=== PATIENT | female | born 1950 | race American Indian/Alaskan Native ===

== ENCOUNTER 2016-06-01 09:08 | Observation (INO) | payer MEDICARE, OTHER ==
--- NOTE | 2016-06-01 09:21 | C.PDOC ---
History Of Present Illness 65yr old female brought in via BLS, presents to the ER with complaints of exacerbated abdominal pain since last night. Patient states similar to prior pain, "usually when I eat something bad". Patient states the pain started after eating a meatloaf last evening, reports of nausea and vomiting. 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 History is limited due to clinical condition. Denied diarrhea. LIMITED DUE TO CLIN COND CO EXAC ABD PAIN SINCE LAST NIGHT. PS SIM TO PRIOR "USUALLY WHEN I EAT SOMETHING BAD". ONSET AFTER EATING MEATLOAF LAST EVENING. +NV. SP PEPCID AND PRILOSEC HEMP FIBER TAKER OFF PS "IM SUPPOSED TO SEE SOMEONE NEXT MONTH ABOUT MY ANEURYSM", DOESNT KNOW IF NEEDS SURGERY OR NOT Patient s/p LHC and Aortogram 12/2015 Non Obstructive Coronaries Normal EF Aortogram reveals AAA 3.5 CM H/O CHRONIC RENAL INSUFF ADMITTED 01/2016 FOR SAME EXAM MOD DIST HEENT MMM; ANICTERIC ABD +EPIG TEND MOD SOFT NO R/G; NO PULSATILE MASS SKIN WARM DRY REMAINDER NEG Time Seen by Provider: 06/01/16 09:19 Chief Complaint (Nursing): Abdominal Pain History Per: Patient History/Exam Limitations: clinical condition Onset/Duration Of Symptoms: Sudden Onset (last night) Current Symptoms Are (Timing): Still Present Past Medical History Reviewed: Historical Data, Nursing Documentation, Vital Signs Vital Signs: Last Vital Signs Temp 98.2 F 06/01/16 09:16 Pulse 104 H 06/01/16 13:00 Resp 20 06/01/16 13:00 BP 205/101 H 06/01/16 13:00 Pulse Ox 100 06/01/16 13:00 - Medical History PMH: Anxiety, Asthma, Fractures (back), Gastritis, HTN, Hypercholesterolemia, Chronic Kidney Disease Surgical History: Cholecystectomy - [facility] Procedures MEASURE OF CARDIAC SAMPL & PRESSURE, L HEART, PERC APPROACH (01/06/16) PLAIN RADIOGRAPHY OF ABDOMINAL AORTA USING OTHER CONTRAST (01/06/16) PLAIN RADIOGRAPHY OF LEFT HEART USING OTHER CONTRAST (01/06/16) PLAIN RADIOGRAPHY OF MULT COR ART USING OTH CONTRAST (01/06/16) Family History: States: No Known Family Hx - Social History Hx Tobacco Use: Yes Hx Alcohol Use: No Hx Substance Use: Yes - Immunization History Hx Tetanus Toxoid Vaccination: Yes Hx Influenza Vaccination: Yes Hx Pneumococcal Vaccination: Yes Review Of Systems Except As Marked, All Systems Reviewed And Found Negative. Review Of Systems: ROS cannot be obtained secondary to pt's inabilty to answer questions. Gastrointestinal: Positive for: Nausea, Vomiting, Abdominal Pain. Negative for : Diarrhea Physical Exam - Physical Exam Appears: Non-toxic, In Acute Distress (Moderate) Skin: Warm, Dry, No Rash Head: Atraumatic, Normacephalic Eye(s): bilateral: Normal Inspection, PERRL, EOMI Ear(s): Bilateral: Normal Oral Mucosa: Moist Throat: Normal, No Erythema, No Exudate Neck: Normal, Normal ROM, Supple Chest: Symmetrical, No Tenderness Cardiovascular: Rhythm Regular, No Murmur Respiratory: Normal Breath Sounds, No Rales, No Wheezing Gastrointestinal/Abdominal: Soft (moderate), Tenderness (Epigastric ), No Guarding, No Rebound, Other (No pulsatile mass) Back: Normal Inspection, No CVA Tenderness Extremity: Normal ROM, No Swelling Neurological/Psych: Oriented x3, Normal Speech, Normal Motor ED Course And Treatment - Laboratory Results Result Diagrams: 06/01/16 09:50 06/01/16 09:50 ECG: Interpreted By Me ECG Rhythm: Sinus Rhythm ECG Interpretation: No Acute Changes Interpretation Of ECG: ST DEP [facility] FROM 03/2016 Rate From EC (BPM) - Other Rad CXR X-Ray: Viewed By Me, Read By Radiologist Interpretation: PROCEDURE: CHEST RADIOGRAPH, 1 VIEW. HISTORY: abd pain. COMPARISON: Comparison chest 04/10/2016. FINDINGS: LUNGS: Hyperinflation; rule out chronic changes of COPD. No acute consolidation. PLEURA: No pneumothorax or pleural fluid seen. CARDIOVASCULAR: Normal. OSSEOUS STRUCTURES: No significant abnormalities. VISUALIZED UPPER ABDOMEN: Normal. OTHER FINDINGS: None. IMPRESSION: Hyperinflation; rule out chronic changes of COPD. No acute consolidation. Progress - Re-Evaluation Re-evaluation Note: 06/01/16 10:19 SLEEPING, IMPROVED FROM PRIOR. VSS BUN/CREAT WNL, IMPROVED FROM PRIOR. WILL CTA A/P 06/01/16 13:46 PERSIST PAIN. REPEAT DILAUDID GIVEN. PT SLEEPS BUT AWAKES IN APPARENT DISCOMFORT WHEN STIMULATED BY PROVIDER 06/01/16 13:54 D/W PMD AWARE OF ER FINDINGS, WILL ADMIT - Data Reviewed Data Reviewed: Lab, Diagnostic imaging, EKG, Old records - Critical Care Citical Care: Excluding Proc Time Critical Care Time: 90 minutes Medical Decision Making Medical Decision Making: PLAN: * CT - Angio Abdomen & Pelvis * CXR * EKG * CBC * Troponin * Dilaudid IVP * Zofran IVP * Sodium Chloride IV Disposition Counseled Patient/Family Regarding: Diagnosis, Need For Followup - Disposition Disposition: HOSPITALIZED Disposition Time: 13:55 Condition: STABLE - POA Present On Arrival: None - Clinical Impression Clinical Impression: Abdominal pain - Scribe Statement The provider has reviewed the documentation as recorded by the Wilmeribakosua Hogan Provider Attestation: All medical record entries made by the Lachelle were at my direction and personally dictated by me. I have reviewed the chart and agree that the record accurately reflects my personal performance of the history, physical exam, medical decision making, and the department course for this patient. I have also personally directed, reviewed, and agree with the discharge instructions and disposition. Decision To Admit - Pt Status Changed To: Hospital Disposition Of: Observation - . Bed Request Type: Regular Admitting Physician: Kang Valdez Patient Diagnosis: Abdominal pain
[2016-06-01] MEDS ORDERED: HYDROmorphone 1 mg/ml ISec IVP STA (09:22)
[2016-06-01] MEDS ORDERED: Sodium Chloride 0.9% 1,000 ML IV ONE (09:22)
[2016-06-01] MEDS ORDERED: Sodium Chloride 0.9% 1,000 ML ONE (09:50)
[2016-06-01] MEDS ORDERED: HYDROmorphone 1 mg/ml ISec ONE (09:51)
[2016-06-01 09:59] LABS: BASO % 0.5 % (0.0-2.0); HEMATOCRIT 41.9 % (34.0-47.0); LYMPH # 0.8 K/uL (1.0-4.3); LYMPH % 8.8 % (20.0-40.0); MEAN CELL VOLUME 88.2 fL (81.0-99.0); MEAN CORPUSCULAR HEMOGLOBIN 29.2 pg (27.0-31.0); MEAN CORPUSCULAR HGB CONC 33.1 g/dL (33.0-37.0); MONO # 0.2 K/uL (0.0-0.8); MONO % 2.2 % (0.0-10.0); NRBC % 0.1 % (0.0-2.0); PLATELET COUNT 286 K/uL (130-400)
[2016-06-01 10:02] LABS: CHLORIDE 98 mmol/L (98-107); SODIUM 144 mmol/L (132-148)
[2016-06-01 10:03] LABS: POTASSIUM 3.6 mmol/L (3.6-5.2)
[2016-06-01 10:04] LABS: WHITE BLOOD COUNT 9.4 K/uL (4.8-10.8)
[2016-06-01 10:05] LABS: ALB/GLOB RATIO 1.3 (1.0-2.1); ALKALINE PHOSPHATASE 106 U/L (38-126); ALT/SGPT 22 U/L (9-52); AST/SGOT 23 U/L (14-36); BILIRUBIN,TOTAL 0.7 mg/dL (0.2-1.3); BLOOD UREA NITROGEN 14 mg/dL (7-17); CARBON DIOXIDE 27 mmol/L (22-30); GFR AFRICAN-AMERICAN > 60; GLUCOSE,RANDOM 154 mg/dL (65-105); TOTAL PROTEIN 8.8 g/dL (6.3-8.3)
[2016-06-01 10:06] LABS: CALCIUM 10.2 mg/dl (8.6-10.4)
[2016-06-01 10:21] LABS: NEUTROPHIL 88 % (50-75); TOTAL CELLS COUNTED 100
--- NOTE | 2016-06-01 11:10 | RAD ---
PROCEDURE: CHEST RADIOGRAPH, 1 VIEW HISTORY: abd pain COMPARISON: Comparison chest 04/10/2016 FINDINGS: LUNGS: Hyperinflation; rule out chronic changes of COPD. No acute consolidation. PLEURA: No pneumothorax or pleural fluid seen. CARDIOVASCULAR: Normal. OSSEOUS STRUCTURES: No significant abnormalities. VISUALIZED UPPER ABDOMEN: Normal. OTHER FINDINGS: None. IMPRESSION: Hyperinflation; rule out chronic changes of COPD. No acute consolidation.
[2016-06-01] MEDS ORDERED: Iodixanol 320 MG/ML 100 ML BOTTLE IV ONE (12:17)
[2016-06-01] MEDS ORDERED: HYDROmorphone 0.5 mg/0.5 ml ISec IVP STA (13:15)
--- NOTE | 2016-06-01 13:36 | CT ---
PROCEDURE: CT Angiography Chest, Abdomen and Pelvis with and without intravenous contrast HISTORY: HTN, ABD PAIN HO AAA RO RUPTURE/DISSECTION COMPARISON: None. TECHNIQUE: Contiguous axial images of the chest, abdomen and pelvis were obtained with and without IV contrast. Coronal and sagittal reformats were generated. IV dose administered: 150 milliliters Visipaque 320 Radiation dose: Total exam DLP = 408.05 MGy-cm. FINDINGS: CT ANGIOGRAPHY OF THE CHEST WITH & WITHOUT CONTRAST: AORTA (CHEST AND ABDOMEN): There is no evidence of dissection. Proximal descending thoracic aorta measures 3.5 centimeters. The distal descending thoracic aorta suprarenal aorta is unremarkable. There is a infrarenal aortic aneurysm measuring 3.7 centimeters aneurysm begins approximately 1 centimeter from the origin of the left renal artery and continues to 1 centimeter before the bifurcation. . Right and left common iliac artery is heavily calcified but patent. No aneurysm is present. The visualized portion of the hypogastric artery and external iliac artery likewise normal. PULMONARY ARTERY: Pulmonary artery is unremarkable without evidence of pulmonary embolism. LUNGS: Clear. No nodule, mass or consolidation. MEDIASTINUM: Unremarkable. Normal caliber aorta and pulmonary arterial trunk. No aortic dissection. Normal size heart. LYMPH NODES: Unremarkable. PLEURA: Unremarkable. No pneumothorax. No pleural fluid. BONES: Unremarkable. OTHER FINDINGS: None. CT ANGIOGRAPHY OF THE ABDOMEN AND PELVIS WITH CONTRAST: LIVER: Unremarkable. No gross lesion or ductal dilatation. GALLBLADDER AND BILE DUCTS: Cholecystectomy PANCREAS: Unremarkable. No gross lesion or ductal dilatation. SPLEEN: Unremarkable. ADRENALS: Unremarkable. No mass. KIDNEYS AND URETERS: Hyperdense lesions within the left kidney on noncontrast study. These are complex renal cysts. VASCULATURE: STOMACH AND BOWEL: Very limited evaluation without PO contrast. No obvious mass. APPENDIX: Normal appendix. PERITONEUM: Unremarkable. No free fluid. No free air. LYMPH NODES: Unremarkable. No enlarged lymph nodes. BLADDER: Unremarkable. REPRODUCTIVE: Unremarkable. BONES: No acute fracture. OTHER FINDINGS: None. IMPRESSION: 1. Infrarenal aortic aneurysm measuring 3.7 centimeter. There is no evidence of dissection. 2. Pulmonary artery is unremarkable without evidence of pulmonary embolism. 3. Multiple hypodense lesions present within the left kidney in a noncontrast study. Duplex ultrasound recommend as a follow-up.
[2016-06-01] MEDS ORDERED: Dextrose 5%/0.45% NS 1,000 ML IV SCH (16:45)
[2016-06-01] MEDS ORDERED: HYDROmorphone 0.5 mg/0.5 ml ISec IVP PRN (17:06)
[2016-06-01 18:05] LABS: RBC URINE 4 /hpf (0-3); URINE BILIRUBIN NEGATIVE (NEGATIVE); URINE BLOOD 1+ (NEGATIVE); URINE COLOR Straw (YELLOW); URINE GLUCOSE (UA) 1+ mg/dL (Normal); URINE KETONE NEGATIVE (NEGATIVE); URINE LEUKOCYTE ESTERASE NEG Leu/uL (Negative); URINE PROTEIN 2+ mg/dL (NEGATIVE); URINE UROBILINOGEN NORMAL mg/dL (0.2-1.0); WBC URINE 1 /hpf (0-5)
[2016-06-01 22:10] VITALS: RESP 20
[2016-06-02 00:28] VITALS: PULSE 66; TEMP 97.6; O2SAT 100
[2016-06-02] MEDS: Albuterol-Ipratrop 20 mcg/actuation (4 g) INH SCH ×3 (06:12→13:12)
[2016-06-02 07:17] LABS: BASO % 0.7 % (0.0-2.0); EOS % 0.4 % (0.0-4.0); LYMPH # 3.2 K/uL (1.0-4.3); LYMPH % 46.2 % (20.0-40.0); MEAN CELL VOLUME 89.7 fL (81.0-99.0); MEAN CORPUSCULAR HEMOGLOBIN 29.1 pg (27.0-31.0); MEAN CORPUSCULAR HGB CONC 32.4 g/dL (33.0-37.0); MEAN PLATELET VOLUME 6.8 fL (7.2-11.7); MONO # 0.7 K/uL (0.0-0.8); MONO % 9.6 % (0.0-10.0); RED CELL DISTRIBUTION WIDTH 14.7 % (11.5-14.5); WHITE BLOOD COUNT 6.9 K/uL (4.8-10.8)
[2016-06-02 07:25] LABS: POTASSIUM 3.9 mmol/L (3.6-5.2)
[2016-06-02 07:29] LABS: CALCIUM 9.2 mg/dl (8.6-10.4)
--- NOTE | 2016-06-02 09:31 | CP.PCM.HP ---
History of Present Illness - History of Present Illness History of Present Illness: Cheif complain: nausea/ vomitting x 2 hrs HPI: 65yr old female PMH abdominal aortic aneurym, HTn, Hyperlipidemia, chronic smoker brought in via BLS, presents to the ER with complaints of exacerbated abdominal pain since last night after eating large portion of meat loaf and pasta. Patient states similar to prior pain, "usually when I eat something bad". Patient states the pain started after eating a meatloaf last evening, reports of nausea and vomiting. 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 Denied diarrhea. Review of Systems - Review of Systems Systems not reviewed;Unavailable: Acuity of Condition - Constitutional Constitutional: Chills, Fatigue, Fever, Lethargy, Malaise, Weakness - EENT Eyes: absent: As Per HPI, Blind Spots, Blurred Vision, Change in Vision, Decreased Night Vision, Diplopia, Discharge, Dry Eye, Exophthalmos, Floaters, Irritation, Itchy Eyes, Loss of Peripheral Vision, Pain, Photophobia, Requires Corrective Lenses, Sees Flashes, Spots in Vision, Tunnel Vision, Other Visual Disturbances, Loss of Vision, Other Nose/Mouth/Throat: absent: As Per HPI, Epistaxis, Nasal Congestion, Nasal Discharge, Nasal Obstruction, Nasal Trauma, Nose Pain, Post Nasal Drip, Sinus Pain, Sinus Pressure, Bleeding Gums, Change in Voice, Dental Pain, Dry Mouth, Dysphagia, Halitosis, Hoarsness, Lip Swelling, Mouth Lesions, Mouth Pain, Odynophagia, Sore Throat, Throat Swelling, Tongue Swelling, Facial Pain, Neck Pain, Neck Mass, Other - Breasts Breasts: absent: As Per HPI, Change in Shape, Mass, Pain, Nipple Discharge, Nipple Inversion, Skin Changes, Swelling, Other - Respiratory Respiratory: absent: As Per HPI, Cough, Dyspnea, Hemoptysis, Dyspnea on Exertion , Wheezing, Snoring, Stridor, Pain on Inspiration, Chest Congestion, Excessive Mucous Production, Change in Mucous Color, Pain with Coughing, Other - Gastrointestinal Gastrointestinal: Abdominal Pain, Nausea, Vomiting Past Patient History - Infectious Disease Hx of Infectious Diseases: None - Past Medical History & Family History Past Medical History?: Yes - Past Social History Smoking Status: 2 STICK/DA - CARDIAC Hx Hypercholesterolemia: Yes Hx Hypertension: Yes - PULMONARY Hx Asthma: Yes - NEUROLOGICAL Hx Neurological Disorder: No - HEENT Hx HEENT Problems: No - RENAL Hx Chronic Kidney Disease: Yes - ENDOCRINE/METABOLIC Hx Endocrine Disorders: No - HEMATOLOGICAL/ONCOLOGICAL Hx Blood Disorders: No Hx Blood Transfusions: No - INTEGUMENTARY Hx Dermatological Problems: No - MUSCULOSKELETAL/RHEUMATOLOGICAL Hx Falls: Yes Hx Fractures: Yes Hx Spinal Stenosis: Yes - GASTROINTESTINAL Hx Gastrointestinal Disorders: Yes Hx Gastritis: Yes - GENITOURINARY/GYNECOLOGICAL Hx Genitourinary Disorders: No - PSYCHIATRIC Hx Anxiety: Yes Hx Substance Use: No - SURGICAL HISTORY Hx Cholecystectomy: Yes - ANESTHESIA Hx Anesthesia: Yes Hx Anesthesia Reactions: No Hx Malignant Hyperthermia: No Meds Allergies/Adverse Reactions: Allergies Allergy/AdvReac Type Severity Reaction Status Date / Time chocolate flavor Allergy Intermediate WHEEZING Verified 04/10/16 07:58 peanut Allergy Intermediate WHEEZING Verified 04/10/16 07:58 spices Allergy Severe WHEEZING Uncoded 04/10/16 07:58 Physical Exam - Constitutional Appears: No Acute Distress - Head Exam Head Exam: ATRAUMATIC, NORMAL INSPECTION, NORMOCEPHALIC - Eye Exam Eye Exam: EOMI, Normal appearance, PERRL Pupil Exam: NORMAL ACCOMODATION, PERRL - Respiratory Exam Respiratory Exam: Clear to Auscultation Bilateral, NORMAL BREATHING PATTERN - Cardiovascular Exam Cardiovascular Exam: REGULAR RHYTHM, Systolic Murmur - GI/Abdominal Exam GI & Abdominal Exam: Normal Bowel Sounds, Soft. absent: Tenderness - Rectal Exam Rectal Exam: Deferred - Neurological Exam Neurological exam: Alert, CN II-XII Intact, Normal Gait, Oriented x3, Reflexes Normal - Psychiatric Exam Psychiatric exam: Agitated, Anxious - Skin Additional comments: senile turgor, no bruises, no purpura Results - Vital Signs Recent Vital Signs: Last Vital Signs Temp 97.6 F 06/02/16 00:24 Pulse 66 06/02/16 00:24 Resp 20 06/02/16 00:24 BP 114/73 06/02/16 00:24 Pulse Ox 100 06/02/16 00:24 - Labs Result Diagrams: 06/02/16 07:04 06/02/16 07:04 Labs: Laboratory Results - last 24 hr 06/01/16 06/02/16 17:56 07:04 WBC 6.9 RBC 4.57 Hgb 13.3 Hct 41.0 MCV 89.7 MCH 29.1 MCHC 32.4 L RDW 14.7 H Plt Count 238 MPV 6.8 L Neut % (Auto) 43.1 L Lymph % (Auto) 46.2 H Nash % (Auto) 9.6 Eos % (Auto) 0.4 Baso % (Auto) 0.7 Neut # 3.0 Lymph # 3.2 Nash # 0.7 Eos # 0.0 Baso # 0.0 Sodium 136 Potassium 3.9 Chloride 93 L Carbon Dioxide 27 Anion Gap 20 BUN 21 H Creatinine 1.4 H Est GFR ( Amer) 46 Est GFR (Non-Af Amer) 38 Random Glucose 103 Calcium 9.2 Urine Color Straw Urine Clarity Clear Urine pH 6.0 Ur Specific [place] 1.024 Urine Protein 2+ H Urine Glucose (UA) 1+ Urine Ketones Negative Urine Blood 1+ H Urine Nitrate Negative Urine Bilirubin Negative Urine Urobilinogen Normal Ur Leukocyte Esterase Neg Urine WBC (Auto) 1 Urine RBC (Auto) 4 H Ur Squamous Epith Cells 2 Assessment & Plan (1) Dehydration Status: Acute (2) Nausea & vomiting Status: Acute (3) Gastroenteritis Assessment and Plan: could be gastritis, unlikely to be PUD Status: Acute (4) Abdominal aortic aneurysm (AAA) Status: Acute
[2016-06-02] MEDS ORDERED: Enoxaparin 40 mg Syringe SC SCH (10:00)
--- NOTE | 2016-06-02 13:03 | CP.PCM.PN ---
Subjective - Date & Time of Evaluation Date of Evaluation: 06/02/16 Time of Evaluation: 11:00 - Subjective Subjective: Pt seen an d examined today states feels better, abdominal pain improved , denies any sob, N/V/D , c/o sore throat , and gland swollen , tolerating liquid diet Objective - Vital Signs/Intake and Output Vital Signs (last 24 hours): Temp Pulse Resp BP Pulse Ox 97.6 F 66 20 114/73 100 06/02/16 00:24 06/02/16 00:24 06/02/16 00:24 06/02/16 00:24 06/02/16 00:24 Intake and Output: 06/02/16 06/02/16 06:59 18:59 Intake Total 500 Balance 500 - Medications Medications: Current Medications Albuterol/Ipratropium (Combivent Respimat) 2 puff INH RQ6 [facility] Last Admin: 06/02/16 08:21 Dose: 2 puff Alprazolam (Xanax) 1 mg PO BID PRN PRN Reason: Anxiety Last Admin: 06/01/16 17:23 Dose: 1 mg Amlodipine Besylate (Norvasc) 10 mg PO DAILY [facility] Last Admin: 06/02/16 09:46 Dose: 10 mg Aspirin (Ecotrin) 81 mg PO DAILY [facility] Last Admin: 06/02/16 09:46 Dose: 81 mg Citalopram Hydrobromide (Celexa) 10 mg PO HS [facility] Last Admin: 06/01/16 21:37 Dose: 10 mg Clonidine HCl (Catapres) 0.1 mg PO BID [facility] Last Admin: 06/02/16 09:54 Dose: 0.1 mg Duloxetine HCl (Cymbalta) 30 mg PO HS [facility] Last Admin: 06/01/16 21:36 Dose: 30 mg Enoxaparin Sodium (Lovenox) 40 mg SC DAILY [facility] Last Admin: 06/02/16 09:46 Dose: 40 mg Dextrose/Sodium Chloride (Dextrose 5%/0.45% Ns 1000 Ml) 1,000 mls @ 80 mls/hr IV .[id number] [facility] Last Admin: 06/01/16 17:29 Dose: 80 mls/hr Morphine Sulfate (Morphine) 2 mg IVP Q4 PRN PRN Reason: Pain, severe (8-10) Ondansetron HCl (Zofran Inj) 4 mg IVP Q4 PRN PRN Reason: Nausea/Vomiting Last Admin: 06/01/16 15:15 Dose: 4 mg Pantoprazole Sodium (Protonix Inj) 40 mg IVP DAILY [facility] Last Admin: 06/02/16 09:45 Dose: 40 mg - Labs Labs: 06/02/16 07:04 06/02/16 07:04 Assessment and Plan - Assessment and Plan (Free Text) Assessment: I A/P 65 yr old female admitted for abdominal pain vss- stable CT - dissection - infrarenal aortic aneurysm measuring 3.7 centimeter. There is no evidence of dissection.Pulmonary artery is unremarkable without evidence of pulmonary embolism .Multiple hypodense lesions present within the left kidney in a noncontrast study. seen by Dr. Valdez today, cleared for discharge home today and f/u with Dr. Valdez office on Wednesday Pt with acute abdominal pain and sore throat , pain controlled with morphine , will discharge patient with percocet for 5 days for acute pain and pt will follow up with Dr. Valdez office in 1 week All RX e prescribed to Patients pharmacy
[2016-06-02 13:54] VITALS: BP 133/83
--- NOTE | 2016-06-02 20:12 | CARD ---
APPROVED REPORT EKG Measurement Heart [id number] <Conclusion> Normal sinus rhythm Possible left atrial enlargement Nonspecific ST abnormality Abnormal ECG
--- NOTE | 2016-06-03 00:43 | CP.PCM.DIS ---
Provider - Provider Date of Admission: 06/01/16 13:57 Attending physician: Kang Valdez MD Diagnosis - Discharge Diagnosis (1) Dehydration Status: Acute (2) Nausea & vomiting Status: Acute (3) Gastroenteritis Status: Acute (4) Abdominal aortic aneurysm (AAA) Status: Acute Hospital Course - Lab Results Lab Results: Most Recent Lab Values WBC 6.9 K/uL (4.8-10.8) 06/02/16 07:04 RBC 4.57 Mil/uL (3.80-5.20) 06/02/16 07:04 Hgb 13.3 g/dL (11.0-16.0) 06/02/16 07:04 Hct 41.0 % (34.0-47.0) 06/02/16 07:04 MCV 89.7 fL (81.0-99.0) 06/02/16 07:04 MCH 29.1 pg (27.0-31.0) 06/02/16 07:04 MCHC 32.4 g/dL (33.0-37.0) L 06/02/16 07:04 RDW 14.7 % (11.5-14.5) H 06/02/16 07:04 Plt Count 238 K/uL (130-400) 06/02/16 07:04 MPV 6.8 fL (7.2-11.7) L 06/02/16 07:04 Neut % (Auto) 43.1 % (50.0-75.0) L 06/02/16 07:04 Lymph % (Auto) 46.2 % (20.0-40.0) H 06/02/16 07:04 [place] % (Auto) 9.6 % (0.0-10.0) 06/02/16 07:04 Eos % (Auto) 0.4 % (0.0-4.0) 06/02/16 07:04 Baso % (Auto) 0.7 % (0.0-2.0) 06/02/16 07:04 Neut # 3.0 K/uL (1.8-7.0) 06/02/16 07:04 Lymph # 3.2 K/uL (1.0-4.3) 06/02/16 07:04 [place] # 0.7 K/uL (0.0-0.8) 06/02/16 07:04 Eos # 0.0 K/uL (0.0-0.7) 06/02/16 07:04 Baso # 0.0 K/uL (0.0-0.2) 06/02/16 07:04 Neutrophils % (Manual) 88 % (50-75) H 06/01/16 09:50 Lymphocytes % (Manual) 9 % (20-40) L 06/01/16 09:50 Monocytes % (Manual) 3 % (0-10) 06/01/16 09:50 Platelet Estimate Normal (NORMAL) 06/01/16 09:50 Target Cells Slight 06/01/16 09:50 Sodium 136 mmol/L (132-148) 06/02/16 07:04 Potassium 3.9 mmol/L (3.6-5.2) 06/02/16 07:04 Chloride 93 mmol/L (98-107) L 06/02/16 07:04 Carbon Dioxide 27 mmol/L (22-30) 06/02/16 07:04 Anion Gap 20 (10-20) 06/02/16 07:04 BUN 21 mg/dL (7-17) H 06/02/16 07:04 Creatinine 1.4 MG/DL (0.7-1.2) H 06/02/16 07:04 Est GFR ( Amer) 46 06/02/16 07:04 Est GFR (Non-Af Amer) 38 06/02/16 07:04 Random Glucose 103 mg/dL (65-105) 06/02/16 07:04 Calcium 9.2 mg/dl (8.6-10.4) 06/02/16 07:04 Total Bilirubin 0.7 mg/dL (0.2-1.3) 06/01/16 09:50 AST 23 U/L (14-36) 06/01/16 09:50 ALT 22 U/L (9-52) 06/01/16 09:50 Alkaline Phosphatase 106 U/L (38-126) 06/01/16 09:50 Troponin I < 0.0120 ng/mL (0.00-0.120) 06/01/16 09:50 Total Protein 8.8 g/dL (6.3-8.3) H 06/01/16 09:50 Albumin 5.0 g/dL (3.5-5.0) 06/01/16 09:50 Globulin 3.9 gm/dL (2.2-3.9) 06/01/16 09:50 Albumin/Globulin Ratio 1.3 (1.0-2.1) 06/01/16 09:50 Lipase 76 U/L (23-300) 06/01/16 09:50 Urine Color Straw (YELLOW) 06/01/16 17:56 Urine Clarity Clear (Clear) 06/01/16 17:56 Urine pH 6.0 (5.0-8.0) 06/01/16 17:56 Ur Specific [place] 1.024 (1.003-1.030) 06/01/16 17:56 Urine Protein 2+ mg/dL (NEGATIVE) H 06/01/16 17:56 Urine Glucose (UA) 1+ mg/dL (Normal) 06/01/16 17:56 Urine Ketones Negative mg/dL (NEGATIVE) 06/01/16 17:56 Urine Blood 1+ (NEGATIVE) H 06/01/16 17:56 Urine Nitrate Negative (NEGATIVE) 06/01/16 17:56 Urine Bilirubin Negative (NEGATIVE) 06/01/16 17:56 Urine Urobilinogen Normal mg/dL (0.2-1.0) 06/01/16 17:56 Ur Leukocyte Esterase Neg [place]/uL (Negative) 06/01/16 17:56 Urine WBC (Auto) 1 /hpf (0-5) 06/01/16 17:56 Urine RBC (Auto) 4 /hpf (0-3) H 06/01/16 17:56 Ur Squamous Epith Cells 2 /hpf (0-5) 06/01/16 17:56 - Hospital Course Hospital Course: Pt seen an d examined today states feels better, abdominal pain improved , denies any sob, N/V/D , c/o sore throat , and gland swollen , tolerating liquid diet , pt is for discharge to home, she was advised for eating healthy foods avoiding heavy graesy foods and canned foods also counselled for smoking cessation Discharge Exam - Head Exam Head Exam: ATRAUMATIC, NORMAL INSPECTION, NORMOCEPHALIC - Eye Exam Eye Exam: EOMI, Normal appearance - ENT Exam ENT Exam: Mucous Membranes Moist - Respiratory Exam Respiratory Exam: Clear to PA & Lateral, NORMAL BREATHING PATTERN - Cardiovascular Exam Cardiovascular Exam: REGULAR RHYTHM, +S1, +S2 - GI/Abdominal Exam GI & Abdominal Exam: Normal Bowel Sounds Discharge Plan - Discharge Medications Prescriptions: Combivent Respimat 2 puff PO Q6 #1 Amoxicillin [Amoxil 500 mg Cap] 500 mg PO Q12 #14 cap cloNIDine [Catapres] 0.1 mg PO Q8 #90 tab Valsartan [Diovan] 160 mg PO DAILY #30 tab oxyCODONE/Acetaminophen [Percocet 5/325 mg Tab] 1 ea PO Q6 PRN #20 tab PRN Reason: Pain, Moderate (4-7) Ergocalciferol (Vitamin D2) [Vitamin D2] 50,000 unit PO QWK #30 capsule ALPRAZolam [Xanax] 1 mg PO DAILY PRN #10 tab PRN Reason: Anxiety - Follow Up Plan Condition: STABLE Disposition: HOME/ ROUTINE Instructions: Clonidine (By mouth), Oxycodone/Acetaminophen (By mouth), Alprazolam (By mouth), Amoxicillin/Clavulanate Potassium (By mouth), Ergocalciferol (By mouth), Valsartan (By mouth), Ipratropium/Albuterol (By breathing), Abdominal Aortic Aneurysm (DC), Gastroenteritis (DC), Acute Abdominal Pain (DC) Additional Instructions: f/u with Dr. Valdez office on wednesday Continue medication as per Med. Rec. continue amoxicillin for 7 days Referrals: Kang Valdez MD [Staff Provider] -
== END 2016-06-02 17:09 | disposition home or self-care (01) ==
LOC: C.ER 09:08 → C.9E 13:57 → C.3T 14:39
PROVIDERS: ADMIT Internal Medicine; ATTEND Internal Medicine
DX: K52.9 Noninfective gastroenteritis and colitis, unspecified (principal); E86.0 Dehydration; E78.5 Hyperlipidemia, unspecified; I71.4 Abdominal aortic aneurysm, without rupture; J45.909 Unspecified asthma, uncomplicated; Z87.891 Personal history of nicotine dependence; Z68.20 Body mass index [BMI] 20.0-20.9, adult
CPT/HCPCS: 36415; 71010; 71275; 74175; 80048; 80053; 81001; 83690; 84484; 85025; 87086; 93005; 94640; 96374; 97162; 99285; C9113; G0378; G8978; G8979; J1170; J1650; J2405; J7040; J7042; Q9967

== ENCOUNTER 2016-09-11 12:33 | Emergency (ER) | payer MEDICARE ==
[2016-09-11 12:43] VITALS: RESP 18; TEMP 98
[2016-09-11] MEDS ORDERED: Sodium Chloride 0.9% 500 ML IV ONE ×2 (13:44→14:19)
[2016-09-11 13:45] LABS: BASO # 0.1 K/uL (0.0-0.2); EOS % 0.4 % (0.0-4.0); HEMATOCRIT 44.7 % (34.0-47.0); LYMPH % 37.8 % (20.0-40.0); MEAN CELL VOLUME 88.6 fL (81.0-99.0); MEAN CORPUSCULAR HEMOGLOBIN 29.1 pg (27.0-31.0); MEAN CORPUSCULAR HGB CONC 32.9 g/dL (33.0-37.0); MONO # 0.9 K/uL (0.0-0.8); NRBC % 0.1 % (0.0-2.0); WHITE BLOOD COUNT 7.8 K/uL (4.8-10.8)
[2016-09-11 13:48] LABS: CHLORIDE 90 mmol/L (98-107)
[2016-09-11 13:49] LABS: POTASSIUM 3.5 mmol/L (3.6-5.2); SODIUM 133 mmol/L (132-148)
[2016-09-11 13:51] LABS: AST/SGOT 22 U/L (14-36); BILIRUBIN,TOTAL 0.7 mg/dL (0.2-1.3); BLOOD UREA NITROGEN 50 mg/dL (7-17); CARBON DIOXIDE 28 mmol/L (22-30); GFR AFRICAN-AMERICAN 32; TOTAL PROTEIN 8.7 g/dL (6.3-8.3)
[2016-09-11 13:52] LABS: ALKALINE PHOSPHATASE 110 U/L (38-126); ALT/SGPT 21 U/L (9-52); CALCIUM 10.1 mg/dl (8.6-10.4); GLUCOSE,RANDOM 110 mg/dL (65-105)
--- NOTE | 2016-09-11 13:58 | C.PDOC ---
History Of Present Illness 65 y/o female presents to ED with c/o epigastric abdominal pain, nausea, and occasional chest pain with palpitations over the last week. Patient also c/o bilateral hip pain. She denies SOB, vomiting, diarrhea, cough, fever, recent falls/injuries. Time Seen by Provider: 09/11/16 13:03 Chief Complaint (Nursing): Abdominal Pain History Per: Patient History/Exam Limitations: no limitations Onset/Duration Of Symptoms: Days Current Symptoms Are (Timing): Still Present Severity: Mild Location Of Pain/Discomfort: Epigastric Radiation Of Pain To:: None Quality Of Discomfort: "Pain" Associated Symptoms: Nausea. denies: Vomiting, Diarrhea, Constipation Past Medical History Reviewed: Historical Data, Nursing Documentation, Vital Signs Vital Signs: Last Vital Signs Temp 98.0 F 09/11/16 12:42 Pulse 72 09/11/16 14:45 Resp 18 09/11/16 14:45 BP 120/70 09/11/16 14:45 Pulse Ox 99 09/11/16 15:24 - Medical History PMH: Anxiety, Arthritis (LBP), Asthma, Fractures, Gastritis, HTN, Hypercholesterolemia, Chronic Kidney Disease Surgical History: Cholecystectomy - [facility] Procedures MEASURE OF CARDIAC SAMPL & PRESSURE, L HEART, PERC APPROACH (01/06/16) PLAIN RADIOGRAPHY OF ABDOMINAL AORTA USING OTHER CONTRAST (01/06/16) PLAIN RADIOGRAPHY OF LEFT HEART USING OTHER CONTRAST (01/06/16) PLAIN RADIOGRAPHY OF MULT COR ART USING OTH CONTRAST (01/06/16) Family History: States: No Known Family Hx - Social History Hx Tobacco Use: Yes Hx Alcohol Use: No Hx Substance Use: No - Immunization History Hx Tetanus Toxoid Vaccination: Yes Hx Influenza Vaccination: Yes Hx Pneumococcal Vaccination: Yes Review Of Systems Except As Marked, All Systems Reviewed And Found Negative. Constitutional: Negative for: Fever, Chills Cardiovascular: Positive for: Palpitations (occasional). Negative for: Chest Pain, Orthopnea Respiratory: Negative for: Cough, Shortness of Breath Gastrointestinal: Positive for: Nausea, Abdominal Pain. Negative for: Vomiting , Diarrhea Musculoskeletal: Positive for: Other (Hip pain, bilateral) Skin: Negative for: Rash Physical Exam - Physical Exam Appears: Non-toxic, No Acute Distress, Other (appears anxious) Skin: Normal Color, Warm, Dry Head: Normacephalic Oral Mucosa: Moist Cardiovascular: Rhythm Regular Respiratory: Normal Breath Sounds, No Rales, No Rhonchi, No Wheezing Gastrointestinal/Abdominal: Normal Exam, Bowel Sounds, Soft, No Tenderness Back: Normal Inspection Extremity: Normal ROM, No Calf Tenderness, No Deformity Neurological/Psych: Oriented x3 ED Course And Treatment - Laboratory Results Result Diagrams: 09/11/16 13:37 09/11/16 13:37 ECG: Interpreted By Me, Viewed By Me (NSR 85 bpm, normal axis, no acute ST/T wave changes) ECG Rhythm: Sinus Rhythm ECG Interpretation: Normal Rate From EC (bpm) O2 Sat by Pulse Oximetry: 99 (RA) Pulse Ox Interpretation: Normal - Radiology CXR: Read By Radiologist CXR Interpretation: Yes: Other (Hyperinflation suggestive for COPD and or emphysematous changes. Biapical pleural thickening. Bibasilar breast and nipple shadows. No focal infiltrate or effusion.) Progress Note: Blood work, EKG, CXR ordered and reviewed. Patient given IV morphine for pain. PO tums given at patient's request (epigastric burning/gas). Reevaluation Time: 15:30 Reassessment Condition: Improved (Patient reassessed, currently resting comfortably, states she is feeling much better and would like to be discharged home. Patient made aware of blood test results and given copies. She was instructed to drink plenty of fluids, use her pain medication as home as needed , and to follow up with Dr. valdez in 1-2 days. Patient understands she should return to ED if symptoms worsen.) Disposition Counseled Patient/Family Regarding: Studies Performed, Diagnosis, Need For Followup - Disposition Referrals: Kang Valdez MD [Staff Provider] - Disposition: HOME/ ROUTINE Disposition Time: 15:30 Condition: STABLE Additional Instructions: FOLLOW UP WITH YOUR DOCTOR IN 1-2 DAYS DRINK PLENTY OF FLUIDS RETURN TO ER IF SYMPTOMS WORSEN Instructions: Epigastric Pain (ED) Print Language: JAPANESE - POA Present On Arrival: None - Clinical Impression Clinical Impression: Epigastric abdominal pain - Scribe Statement The provider has reviewed the documentation as recorded by the Lachelle Cavanaugh Provider Attestation: All medical record entries made by the Lachelle were at my direction and personally dictated by me. I have reviewed the chart and agree that the record accurately reflects my personal performance of the history, physical exam, medical decision making, and the department course for this patient. I have also personally directed, reviewed, and agree with the discharge instructions and disposition.
--- NOTE | 2016-09-11 14:10 | RAD ---
PROCEDURE: CHEST RADIOGRAPH, 1 VIEW HISTORY: Chest pain COMPARISON: 06/01/2016 FINDINGS: LUNGS: Hyperinflation suggestive for COPD and or emphysematous changes. Biapical pleural thickening. Bibasilar breast and nipple shadows. No focal infiltrate or effusion. PLEURA: No pneumothorax or pleural fluid seen. CARDIOVASCULAR: Normal. OSSEOUS STRUCTURES: No significant abnormalities. VISUALIZED UPPER ABDOMEN: Normal. OTHER FINDINGS: None. IMPRESSION: Hyperinflation suggestive for COPD and or emphysematous changes. Biapical pleural thickening. Bibasilar breast and nipple shadows. No focal infiltrate or effusion.
[2016-09-11 14:45] VITALS: BP 120/70; PULSE 72
[2016-09-11 15:05] LABS: RBC URINE < 1 /hpf (0-3); URINE BILIRUBIN NEGATIVE (NEGATIVE); URINE BLOOD NEGATIVE (NEGATIVE); URINE COLOR Yellow (YELLOW); URINE GLUCOSE (UA) NORMAL (Normal); URINE KETONE NEGATIVE (NEGATIVE); URINE LEUKOCYTE ESTERASE NEG Leu/uL (Negative); URINE PROTEIN NEGATIVE (NEGATIVE); URINE UROBILINOGEN NORMAL mg/dL (0.2-1.0); WBC URINE 1 /hpf (0-5)
[2016-09-11] MEDS ORDERED: Calcium Carbonate 500 mg Chewable Antacid Tab PO STA (15:21)
[2016-09-11 15:24] VITALS: O2SAT 99
--- NOTE | 2016-09-14 14:08 | CARD ---
APPROVED REPORT EKG Measurement Heart [id number] <Conclusion> Normal sinus rhythm Right atrial enlargement Borderline ECG
== END 2016-09-11 15:56 | disposition home or self-care (01) ==
LOC: C.ER 12:33
DX: R10.13 Epigastric pain (principal); I12.9 Hypertensive chronic kidney disease with stage 1 through stage 4 chronic kidney disease, or unspecified chronic kidney disease; N18.9 Chronic kidney disease, unspecified; E78.00 Pure hypercholesterolemia, unspecified
CPT/HCPCS: 71010; 80053; 81001; 82550; 82553; 82948; 83690; 83880; 84484; 85025; 85610; 85730; 96361; 96374; 99285; J2270; J7040

== ENCOUNTER 2016-09-19 00:19 | Emergency (ER) | payer MEDICARE ==
[2016-09-19] MEDS ORDERED: Sodium Chloride 0.9% 1,000 ML IV ONE (00:54)
--- NOTE | 2016-09-19 00:55 | C.PDOC ---
History Of Present Illness <Hossein Guerrero R - Last Filed: 09/19/16 06:51> <Monika Doe A - Last Filed: 09/19/16 14:49> A 65 y/o F c/o abdominal pain that began today. Pain is to the lower and mid abdominal area that radiates to the back. Denies fever, chills, nausea, vomiting , diarrhea, urinary symptoms, vaginal bleeding, or discharge. (Hossein Guerrero) History Per: Patient History/Exam Limitations: no limitations Onset/Duration Of Symptoms: Hrs Current Symptoms Are (Timing): Still Present Severity: Mild Location Of Pain/Discomfort: LUQ, LLQ, Other (Mid abdomen) Radiation Of Pain To:: Back Quality Of Discomfort: "Pain" Associated Symptoms: denies: Fever, Chills, Nausea, Vomiting, Diarrhea, Urinary Symptoms Exacerbating Factors: None Alleviating Factors: None Recent travel outside of the [place]: No Additional History Per: Patient Abnormal Vaginal Bleeding: No <Hossein Guerrero - Last Filed: 09/19/16 06:51> <Monika Doe A - Last Filed: 09/19/16 14:49> Time Seen by Provider: 09/19/16 01:18 Chief Complaint (Nursing): Abdominal Pain Past Medical History Reviewed: Historical Data, Nursing Documentation, Vital Signs - Medical History PMH: Anxiety, Arthritis (LBP), Asthma, Fractures, Gastritis, HTN, Hypercholesterolemia, Chronic Kidney Disease Surgical History: Cholecystectomy Family History: States: Unknown Family Hx - Social History Hx Tobacco Use: Yes Hx Alcohol Use: No Hx Substance Use: No - Immunization History Hx Tetanus Toxoid Vaccination: No Hx Influenza Vaccination: No Hx Pneumococcal Vaccination: No <Hossein Guerrero Dottie - Last Filed: 09/19/16 06:51> Review Of Systems Except As Marked, All Systems Reviewed And Found Negative. Constitutional: Negative for: Fever, Chills Gastrointestinal: Positive for: Abdominal Pain. Negative for: Nausea, Vomiting , Diarrhea Genitourinary: Negative for: Dysuria, Hematuria, Vaginal Discharge, Vaginal Bleeding Musculoskeletal: Positive for: Back Pain (Radiation) <Hossein Guerrero - Last Filed: 09/19/16 06:51> Physical Exam - Physical Exam Appears: Non-toxic, No Acute Distress Skin: Warm, Dry Head: Atraumatic, Normacephalic Eye(s): bilateral: Normal Inspection Cardiovascular: Rhythm Regular Respiratory: Normal Breath Sounds, No Accessory Muscle Use, No Rales, No Rhonchi , No Wheezing Gastrointestinal/Abdominal: Soft, Tenderness (Bilateral lower abdomen and mid abdomen), No Mass, No Guarding, No Rebound Back: Normal Inspection, No CVA Tenderness Neurological/Psych: Oriented x3, Normal Speech, Normal Cognition, Other (No focal deficit) <Hossein Guerrero R - Last Filed: 09/19/16 06:51> ED Course And Treatment - Laboratory Results Result Diagrams: 09/19/16 01:07 09/19/16 01:07 O2 Sat by Pulse Oximetry: 97 (RA) Pulse Ox Interpretation: Normal Progress Note: Patient made aware of CT report of posssible impending rupture of AAA per radiologist. Dr. Valdez called for admission. Patient subsequenrtly refused to be admitted. Signed AMA. Advised about possible consequences of ruptured aneurysm. Reevaluation Time: 06:16 - Physician Consult Information Physician Contacted: Kang Valdez (Patient to be admitted.) <Hossein Guerrero - Last Filed: 09/19/16 06:51> - Laboratory Results Result Diagrams: 09/19/16 01:07 09/19/16 01:07 <Monika Doe A - Last Filed: 09/19/16 14:49> Medical Decision Making <Hossein Guerrero R - Last Filed: 09/19/16 06:51> <Monika Doe A - Last Filed: 09/19/16 14:49> Medical Decision Making: Impression: A 65 y/o F c/o abdominal pain that began today. Plans: -CT Abd with contrast -Blood labs -Dilauded -Zofran -IV fluids -UA -Reassess Re-exam pt is pain free. Abdomen soft. Mild tenderness to the RLQ. no guarding or rebound. Copy of CT done 05/[address] Murphy. Picture copy of Ct study done june [address] [facility] to be seen by Dr. Murphy. 06:30. Pt signed AMA. (Hossein Guerrero) Disposition Discussed With DrKristofer: Kang Valdez Counseled Patient/Family Regarding: Diagnosis - Disposition Disposition Time: 06:10 - POA Present On Arrival: None <Hossein Guerrero R - Last Filed: 09/19/16 06:51> <Monika Doe A - Last Filed: 09/19/16 14:49> - Disposition Disposition: AGAINST MEDICAL ADVICE Condition: STABLE Instructions: Abdominal Aortic Aneurysm (GEN), Abdominal Pain (ED) - Clinical Impression Clinical Impression: Abdominal pain, Abdominal aortic aneurysm - Scribe Statement The provider has reviewed the documentation as recorded by the Scribe <Hossein Guerrero R - Last Filed: 09/19/16 06:51> <Monika Doe A - Last Filed: 09/19/16 14:49> - Scribe Statement Rosas [email or web address] All medical record entries made by the Scribe were at my direction and personally dictated by me. I have reviewed the chart and agree that the record accurately reflects my personal performance of the history, physical exam, medical decision making, and the department course for this patient. I have also personally directed, reviewed, and agree with the discharge instructions and disposition. (Hossein Guerrero) Addendum <Hossein Guerrero - Last Filed: 09/19/16 06:51> <Monika Doe A - Last Filed: 09/19/16 14:49> Addendum: 09/19/16 10:43 Called by AD radiologist about overnight read showing possible impending AAA rupture. Dr. Guerrero was aware and attempted to contact patient, also spoke with PMD Dr Valdez. Patient apparently signed out AMA. Called patient's phone number again, is not working. Spoke with patient's son Fidel Gallo, who states mother is on her way to her doctor's office now. Asked him to have her contact us BELÉN, is aware she needs to return to ER emergently. 09/19/16 13:45 No call back from patient so far. Spoke with Dr. Valdez (PMD), patient was seen in his office today and he instructed her to return to ER due to concerning CT scan findings. He states patient refused to return to ER, so was instructed to call Dr. Reeder's office for follow up (vascular surgeon). ( Monika Doe)
[2016-09-19] MEDS ORDERED: Sodium Chloride 0.9% 1,000 ML ONE (00:57)
[2016-09-19 01:14] LABS: BASO # 0.1 K/uL (0.0-0.2); BASO % 0.8 % (0.0-2.0); HEMOGLOBIN 14.7 g/dL (11.0-16.0); LYMPH # 1.7 K/uL (1.0-4.3); LYMPH % 15.5 % (20.0-40.0); MEAN CELL VOLUME 88.9 fL (81.0-99.0); MEAN CORPUSCULAR HGB CONC 32.6 g/dL (33.0-37.0); MEAN PLATELET VOLUME 6.7 fL (7.2-11.7); MONO # 0.3 K/uL (0.0-0.8); MONO % 2.7 % (0.0-10.0); NEUT # 8.9 K/uL (1.8-7.0); NRBC % 0.1 % (0.0-2.0); RBC 5.07 Mil/uL (3.80-5.20); RED CELL DISTRIBUTION WIDTH 13.2 % (11.5-14.5)
[2016-09-19] MEDS ORDERED: Iohexol 240 (50 ml) PO ONE (01:20)
[2016-09-19] MEDS ORDERED: Iohexol 240 (50 ml) ONE (01:24)
[2016-09-19 02:15] LABS: ALBUMIN 4.6 g/dL (3.5-5.0)
[2016-09-19 02:18] LABS: AST/SGOT 48 U/L (14-36); BLOOD UREA NITROGEN 12 mg/dL (7-17); GFR AFRICAN-AMERICAN > 60; GFR NON-AFRICAN AMERICAN > 60
[2016-09-19 02:19] LABS: ALT/SGPT 35 U/L (9-52); CALCIUM 10.4 mg/dl (8.6-10.4); LIPASE 113 U/L (23-300)
[2016-09-19] MEDS ORDERED: Iohexol 350mg/ml 100 ML ONE (02:27)
[2016-09-19 02:41] LABS: SQUAMOUS EPITHIAL 1 /hpf (0-5); URINE BILIRUBIN NEGATIVE (NEGATIVE); URINE CLARITY Clear (Clear); URINE COLOR Yellow (YELLOW); URINE GLUCOSE (UA) NORMAL (Normal); URINE LEUKOCYTE ESTERASE NEG Leu/uL (Negative); URINE NITRATE NEGATIVE (NEGATIVE); URINE PROTEIN 1+ mg/dL (NEGATIVE); URINE UROBILINOGEN NORMAL mg/dL (0.2-1.0)
[2016-09-19 03:34] LABS: URINE BLOOD TRACE (NEGATIVE)
--- NOTE | 2016-09-19 05:17 | CT ---
EXAM: CT Abdomen and Pelvis With Intravenous Contrast CLINICAL HISTORY: 65 years old, female; Pain; Abdominal pain; Patient HX: 10-26-16; Additional info: Abd pain/ mid abd and moises lower. TECHNIQUE: Axial computed tomography images of the abdomen and pelvis with intravenous contrast. This CT exam was performed using one or more of the following dose reduction techniques: automated exposure control, adjustment of the mA and/or kV according to patient size, and/or use of iterative reconstruction technique. Coronal and sagittal reformatted images were created and reviewed. CONTRAST: 100 mL of [id number] administered intravenously. EXAM DATE/TIME: Exam ordered 09/19/2016 12:55 AM COMPARISON: No relevant prior studies available. FINDINGS: Lower thorax: Lung bases with no evidence of acute infection. Air in the esophagus in keeping with reflux. Small hiatus hernia. ABDOMEN: Liver: Hepatic steatosis. Mild intrahepatic biliary ductal dilatation, laboratory correlation recommended. Gallbladder and bile ducts: Cholecystectomy. Pancreas: Unremarkable. No mass. No ductal dilation. Spleen: Unremarkable. No splenomegaly. Adrenals: Unremarkable. No mass. Kidneys and ureters: There are multiple cystic findings in the left kidney, noting coronal image 45 a left lower pole finding which has a solid appearance and is suspicious for neoplasm. No hydronephrosis. Stomach and bowel: Unremarkable. No obstruction. No mucosal thickening.Probable constipation. Appendix: No findings to suggest acute appendicitis. PELVIS: Bladder: Bladder is partly collapsed limiting evaluation. Reproductive: Unremarkable as visualized. ABDOMEN and PELVIS: Intraperitoneal space: No free air. No significant fluid collection. Bones/joints: Degenerative spine changes particularly at L5-S1 with grade 1 anterolisthesis. No acute fracture. No dislocation. Soft tissues: Unremarkable. Vasculature: There is an infrarenal abdominal aortic aneurysm which measures 4 cm, although there is no previous imaging available a previous report dated May 2016 describes a 3.7 cm abdominal aortic aneurysm. Comparison is strongly recommended, noting that there is a somewhat irregular configuration to the aneurysm and confirmation of stability is strongly advised noting current symptoms of mid to lower abdominal pain which could be related to this aneurysm. Lymph nodes: Suggestion of multiple nodes in the para-aortic region at the level of the left renal vein. Other findings: Previous studies have been performed but are not available for review, please compare on site. IMPRESSION: Abdominal aortic aneurysm, relatively saccular, infrarenal. Suspicion for draped aorta sign [id number], this implies greater concern for impending rupture. Direct comparison is strongly recommended, previous imaging is not available at this time, cannot exclude that this may represent a small change in caliber compared to study of May 2016 at which time different dimensions were reported. Suspicion of solid left renal neoplasm, approximately 2.4cm. THIS REPORT CONTAINS FINDINGS THAT MAY BE CRITICAL TO PATIENT CARE. The findings were verbally communicated via telephone conference with Hossein Guerrero at 5:05 AM EDT on 09/19/2016. The findings were acknowledged and understood.
[2016-09-19] MEDS ORDERED: Metoprolol Succinate 50 mg XL Tab PO ONE (05:37)
[2016-09-19] MEDS ORDERED: Metoprolol Succinate 50 mg XL Tab PO STA (05:38)
[2016-09-19 06:37] VITALS: BP 158/83; PULSE 71; RESP 16; TEMP 98.8
[2016-09-19 06:40] VITALS: O2SAT 97
== END 2016-09-19 06:37 | disposition left against medical advice (07) ==
LOC: C.ER 00:19
DX: I71.4 Abdominal aortic aneurysm, without rupture (principal); R10.32 Left lower quadrant pain
CPT/HCPCS: 74177; 80053; 81001; 83690; 85025; 86850; 86900; 96361; 96374; 96375; 99285; J1170; J2405; J7040; Q9966; Q9967

== ENCOUNTER 2017-05-20 10:40 | Inpatient (IN) | payer BC, MEDICARE ==
[2017-05-20] MEDS ORDERED: Sodium Chloride 0.9% 1,000 ML IV ONE (11:41)
--- NOTE | 2017-05-20 11:47 | C.PDOC ---
History Of Present Illness 66 yr old female with PMHx of AAA 4.2cm, followed by Dr. Reeder, presents to the ER for ongoing left lower and left flank pain. Patient was seen at [facility] 5 days ago and discharged home and now comes in with ongoing pain. Patient discussed her symptoms with her PMD Dr. Horowitz and was told to come to the ER. Patient also reports nausea and vomiting. Denies fever, chills, diarrhea, dysuria, vaginal discharge, vaginal bleeding, weakness or numbness. Time Seen by Provider: 05/20/17 11:08 Chief Complaint (Nursing): Abdominal Pain History Per: Patient History/Exam Limitations: no limitations Onset/Duration Of Symptoms: Persistent Location Of Pain/Discomfort: LLQ Past Medical History Reviewed: Historical Data, Nursing Documentation, Vital Signs Vital Signs: Last Vital Signs Temp 98.2 F 05/20/17 10:48 Pulse 89 05/20/17 10:48 Resp 18 05/20/17 10:48 BP 130/83 05/20/17 10:48 Pulse Ox 100 05/20/17 13:18 - Medical History PMH: Anxiety, Arthritis (LBP), Asthma, Fractures, Gastritis, HTN, Hypercholesterolemia, Chronic Kidney Disease Surgical History: Cholecystectomy - [facility] Procedures MEASURE OF CARDIAC SAMPL & PRESSURE, L HEART, PERC APPROACH (01/06/16) PLAIN RADIOGRAPHY OF ABDOMINAL AORTA USING OTHER CONTRAST (01/06/16) PLAIN RADIOGRAPHY OF LEFT HEART USING OTHER CONTRAST (01/06/16) PLAIN RADIOGRAPHY OF MULT COR ART USING OTH CONTRAST (01/06/16) Family History: States: No Known Family Hx - Social History Hx Tobacco Use: Yes Hx Alcohol Use: No Hx Substance Use: No - Immunization History Hx Tetanus Toxoid Vaccination: No Hx Influenza Vaccination: No Hx Pneumococcal Vaccination: Yes Review Of Systems Except As Marked, All Systems Reviewed And Found Negative. Constitutional: Negative for: Fever, Chills Gastrointestinal: Positive for: Nausea, Vomiting, Abdominal Pain (left lower). Negative for: Diarrhea Genitourinary: Negative for: Dysuria, Vaginal Discharge, Vaginal Bleeding Musculoskeletal: Positive for: Back Pain (left flank) Neurological: Negative for: Weakness, Numbness Physical Exam - Physical Exam Appears: Non-toxic, No Acute Distress Skin: Warm, Dry Oral Mucosa: Moist Cardiovascular: Rhythm Regular, No Murmur Respiratory: Normal Breath Sounds, No Rales, No Rhonchi, No Stridor, No Wheezing Gastrointestinal/Abdominal: Soft, Tenderness (LLQ), No Guarding, No Rebound Back: CVA Tenderness (left) Extremity: Normal ROM, No Swelling Neurological/Psych: Oriented x3, Normal Speech ED Course And Treatment - Laboratory Results Result Diagrams: 05/20/17 12:03 05/20/17 12:03 ECG: Interpreted By Me, Viewed By Me ECG Rhythm: Sinus Rhythm Interpretation Of ECG: Normal intervals. Normal axis. No ST/T wave abnormalities. Rate From EC (BPM) O2 Sat by Pulse Oximetry: 100 (RA) Pulse Ox Interpretation: Normal - Other Rad CXR X-Ray: Viewed By Me, Read By Radiologist Interpretation: PROCEDURE: CHEST RADIOGRAPH, 1 VIEW. HISTORY: abd pain. COMPARISON: 09/11/2016. FINDINGS: LUNGS: No acute infiltrate bilaterally. Inspiratory volume appears somewhat diminished bilaterally. PLEURA: No pneumothorax or pleural fluid seen. CARDIOVASCULAR: Normal. OSSEOUS STRUCTURES: No significant abnormalities. VISUALIZED UPPER ABDOMEN: Normal. OTHER FINDINGS: None. IMPRESSION: Marginally diminished inspiratory volume, however, no infiltrate pleural effusion or pneumothorax is identified bilaterally in the interval. - CT Scan/US CTA Other Rad Studies (CT/US): Read By Radiologist, Radiology Report Reviewed CT/US Interpretation: PROCEDURE: CT Angiography Abdomen, Pelvis and Lower Extremity with Contrast. HISTORY: abd. pain. COMPARISON: Abdomen pelvis CT with contrast 09/19/2016. TECHNIQUE: Technique: CT angiography of the abdomen , pelvis and bilateral lower extremities performed in the arterial phase of enhancement. Coronal and sagittal reformats, and well as rotating MIP images of the vessels generated at the workstation. Intravenous contrast dose: Visipaque 320, 100 cc. Radiation dose: Total exam DLP = 223.47 mGy-cm. This CT exam was performed using one or more of the following dose reduction techniques: Automated exposure control, adjustment of the mA and/or kV according to patient size, and/or use of iterative reconstruction technique. FINDINGS: CT ANGIOGRAPHY: ABDOMINAL AORTA:: A fusiform infrarenal abdominal aortic aneurysm is reiterated with relatively prominent mural thrombus measuring 4.1 x 3.3 cm (transverse by anteroposterior dimensions), not significantly changed in size in the interval. The patent lumen within the aneurysm measures 1.9 x 1.6 cm. No abdominal aortic dissection is identified and there is no direct CT sign of leakage through this aneurysm. Aneurysm is again seen terminating just proximal to the bifurcation of the abdominal aorta. MAJOR AORTIC BRANCHES: Celiac [place]: Unremarkable. Superior mesenteric artery: Unremarkable. Inferior mesenteric artery: Unremarkable. Renal arteries: Trace bilateral atherosclerosis proximal bilateral renal arteries. PELVIC ARTERIES: Right Common Iliac: Minimally atherosclerotic without significant stenosis. Right External Iliac: Minimally atherosclerotic without significant stenosis. Right Internal Iliac: Minimally atherosclerotic without significant stenosis. Left Common Iliac: Minimally atherosclerotic without significant stenosis. Left External Iliac: Minimally atherosclerotic without significant stenosis. Left Internal Iliac: Minimally atherosclerotic without significant stenosis. Right Common Femoral: Minimally atherosclerotic without significant stenosis. Left Common Femoral: Minimally atherosclerotic without significant stenosis. NON- ANGIOGRAPHIC ASPECT OF THE EXAM: LOWER THORAX: Unremarkable. LIVER: Unremarkable. No gross lesion or ductal dilatation. GALLBLADDER AND BILE DUCTS : Surgical absence again noted. PANCREAS: Unremarkable. No gross lesion or ductal dilatation. SPLEEN: Unremarkable. ADRENALS: Unremarkable. No mass. KIDNEYS AND URETERS: A stable, lucency is seen related to the upper pole left kidney measuring 28 mm suggesting possible complex cyst or solid lesion. A small cortical infarcts in the right kidney which is otherwise unremarkable consider follow-up MRI without contrast for better characterization of the kidney or CT with and without contrast. . STOMACH AND BOWEL: Unremarkable. No obstruction. No gross mural thickening. APPENDIX: Normal appendix. PERITONEUM : Unremarkable. No free fluid. No free air. LYMPH NODES: Unremarkable. No enlarged lymph nodes. BLADDER: Unremarkable. REPRODUCTIVE: Unremarkable. BONES: Stable limited grade 1 spondylolisthesis L5-S1. OTHER FINDINGS: None. IMPRESSION: 1. Stable infrarenal abdominal aortic aneurysm 4.1 cm greatest dimension once again with prominent internal thrombus but patent lumen. No evidence to suggest active leakage. 2. Prior cholecystectomy again evident. 3. Stable 2.8 cm lucency low upper pole left kidney not representing simple cysts is likely reflects a complex cyst or possible soft tissue lesion. Medical Decision Making Medical Decision Making: IMPRESSION: Intractable abdominal pain PLAN: * CTA * CXR * EKG * Labs * Urinalysis * Morphine IVP * Pepcid IVP * Zofran IVP * Sodium Chloride IV NOTE: * Case discussed with Dr. Horowitz, patient to be admitted to [facility] for intractable abdominal pain * Case discussed with Dr. Reeder, requesting CTA & will come evaluate the patient Disposition Discussed With : Crys Horowitz Counseled Patient/Family Regarding: Studies Performed, Diagnosis - Disposition Disposition: HOSPITALIZED Disposition Time: 11:47 Condition: FAIR - Clinical Impression Clinical Impression: Abdominal pain - Scribe Statement The provider has reviewed the documentation as recorded by the Wilmeribe Summer Hogan Provider Attestation: All medical record entries made by the Wilmeribakosua were at my direction and personally dictated by me. I have reviewed the chart and agree that the record accurately reflects my personal performance of the history, physical exam, medical decision making, and the department course for this patient. I have also personally directed, reviewed, and agree with the discharge instructions and disposition.
[2017-05-20] MEDS ORDERED: Morphine 4 MG/ML VIAL ONE (12:03)
[2017-05-20 12:14] LABS: BASO # 0.1 K/uL (0.0-0.2); BASO % 1.1 % (0.0-2.0); EOS # 0.1 K/uL (0.0-0.7); EOS % 0.9 % (0.0-4.0); HEMOGLOBIN 15.3 g/dL (11.0-16.0); LYMPH # 2.8 K/uL (1.0-4.3); MEAN CELL VOLUME 90.9 fL (81.0-99.0); MEAN CORPUSCULAR HEMOGLOBIN 30.9 pg (27.0-31.0); MEAN PLATELET VOLUME 6.4 fL (7.2-11.7); MONO # 0.4 K/uL (0.0-0.8); MONO % 6.1 % (0.0-10.0); NEUT # 3.5 K/uL (1.8-7.0); NEUT % 50.9 % (50.0-75.0); RBC 4.96 Mil/uL (3.80-5.20); RED CELL DISTRIBUTION WIDTH 13.4 % (11.5-14.5); WHITE BLOOD COUNT 6.8 K/uL (4.8-10.8)
[2017-05-20 12:24] LABS: ALB/GLOB RATIO 1.1 (1.0-2.1); ALBUMIN 5.3 g/dL (3.5-5.0); ALT/SGPT 13 U/L (9-52); AST/SGOT 27 U/L (14-36); BLOOD UREA NITROGEN 19 mg/dL (7-17); CALCIUM 10.9 mg/dl (8.6-10.4); GFR AFRICAN-AMERICAN 54; GFR NON-AFRICAN AMERICAN 45; LIPASE 195 U/L (23-300)
[2017-05-20] MEDS ORDERED: Iodixanol 320 MG/ML 100 ML BOTTLE IV ONE ×2 (12:38→12:39)
--- NOTE | 2017-05-20 13:01 | RAD ---
PROCEDURE: CHEST RADIOGRAPH, 1 VIEW HISTORY: abd pain COMPARISON: 09/11/2016. FINDINGS: LUNGS: No acute infiltrate bilaterally. Inspiratory volume appears somewhat diminished bilaterally. PLEURA: No pneumothorax or pleural fluid seen. CARDIOVASCULAR: Normal. OSSEOUS STRUCTURES: No significant abnormalities. VISUALIZED UPPER ABDOMEN: Normal. OTHER FINDINGS: None. IMPRESSION: Marginally diminished inspiratory volume, however, no infiltrate pleural effusion or pneumothorax is identified bilaterally in the interval.
--- NOTE | 2017-05-20 14:02 | CT ---
PROCEDURE: CT Angiography Abdomen, Pelvis and Lower Extremity with Contrast HISTORY: abd. pain COMPARISON: Abdomen pelvis CT with contrast 09/19/2016. TECHNIQUE: Technique: CT angiography of the abdomen, pelvis and bilateral lower extremities performed in the arterial phase of enhancement. Coronal and sagittal reformats, and well as rotating MIP images of the vessels generated at the workstation. Intravenous contrast dose: Visipaque 320, 100 cc Radiation dose: Total exam DLP = 223.47 mGy-cm. This CT exam was performed using one or more of the following dose reduction techniques: Automated exposure control, adjustment of the mA and/or kV according to patient size, and/or use of iterative reconstruction technique. FINDINGS: CT ANGIOGRAPHY: ABDOMINAL AORTA:: A fusiform infrarenal abdominal aortic aneurysm is reiterated with relatively prominent mural thrombus measuring 4.1 x 3.3 cm (transverse by anteroposterior dimensions), not significantly changed in size in the interval. The patent lumen within the aneurysm measures 1.9 x 1.6 cm. No abdominal aortic dissection is identified and there is no direct CT sign of leakage through this aneurysm. Aneurysm is again seen terminating just proximal to the bifurcation of the abdominal aorta. MAJOR AORTIC BRANCHES: Celiac [place]: Unremarkable. Superior mesenteric artery: Unremarkable. Inferior mesenteric artery: Unremarkable. Renal arteries: Trace bilateral atherosclerosis proximal bilateral renal arteries. PELVIC ARTERIES: Right Common Iliac: Minimally atherosclerotic without significant stenosis. Right External Iliac: Minimally atherosclerotic without significant stenosis. Right Internal Iliac: Minimally atherosclerotic without significant stenosis. Left Common Iliac: Minimally atherosclerotic without significant stenosis. Left External Iliac: Minimally atherosclerotic without significant stenosis. Left Internal Iliac: Minimally atherosclerotic without significant stenosis. Right Common Femoral: Minimally atherosclerotic without significant stenosis. Left Common Femoral: Minimally atherosclerotic without significant stenosis. NON-ANGIOGRAPHIC ASPECT OF THE EXAM: LOWER THORAX: Unremarkable. LIVER: Unremarkable. No gross lesion or ductal dilatation. GALLBLADDER AND BILE DUCTS: Surgical absence again noted. PANCREAS: Unremarkable. No gross lesion or ductal dilatation. SPLEEN: Unremarkable. ADRENALS: Unremarkable. No mass. KIDNEYS AND URETERS: A stable, lucency is seen related to the upper pole left kidney measuring 28 mm suggesting possible complex cyst or solid lesion. A small cortical infarcts in the right kidney which is otherwise unremarkable consider follow-up MRI without contrast for better characterization of the kidney or CT with and without contrast. . STOMACH AND BOWEL: Unremarkable. No obstruction. No gross mural thickening. APPENDIX: Normal appendix. PERITONEUM: Unremarkable. No free fluid. No free air. LYMPH NODES: Unremarkable. No enlarged lymph nodes. BLADDER: Unremarkable. REPRODUCTIVE: Unremarkable. BONES: Stable limited grade 1 spondylolisthesis L5-S1. OTHER FINDINGS: None. IMPRESSION: 1. Stable infrarenal abdominal aortic aneurysm 4.1 cm greatest dimension once again with prominent internal thrombus but patent lumen. No evidence to suggest active leakage. 2. Prior cholecystectomy again evident. 3. Stable 2.8 cm lucency low upper pole left kidney not representing simple cysts is likely reflects a complex cyst or possible soft tissue lesion.
[2017-05-20] MEDS ORDERED: Home Med 1 UNIT (Valsartan [Diovan] 160 MG) PO SCH (15:00)
--- NOTE | 2017-05-20 15:29 | CP.PCM.CON ---
History of Present Illness - History of Present Illness History of Present Illness: Vascular Surgery: Dr Reeder Pt is a 66F with PMH of HLD, DM, AAA, renal cyst who presents with left sided flank pain. Pt reports the pain has been going on for a little over a week. Pt first started having flu like symptoms last wednesday, in which she had body aches, chills, rhinitis and a cough. Pt states she had "pure blood" coming out both her nose and with coughing. Reports the bleeding has since stopped, but on wednesday she developed this left sided pain. Was seen in [facility], had a CT scan which showed no intra-abdominal pathology and was subsequently discharged " still in pain" as she reports. Pt states all of her symptoms have subsided with the exception of the left sided flank pain. It starts around the level of the ribs and extends down to the hip in the mid-axillary line and radiating towards the back. Denies any emesis but does admit to nausea. Pain is not exarcerbated by movements or eating. Denies any dysuria or hematuria. PMH: HLD, possibly DM?, AAA (4.[address] scan) PSH: cholecystectomy Social: Recovered EtOH abuser, current smoker Review of Systems - Review of Systems All systems: reviewed and no additional remarkable complaints except (as per hpi ) Past Patient History - Infectious Disease Hx of Infectious Diseases: None - Past Medical History & Family History Past Medical History?: Yes - Past Social History Smoking Status: Light Smoker < 10 Cigarettes Daily - CARDIAC Hx Hypercholesterolemia: Yes Hx Hypertension: Yes - PULMONARY Hx Asthma: Yes - NEUROLOGICAL Hx Neurological Disorder: No - HEENT Hx HEENT Problems: No - RENAL Hx Chronic Kidney Disease: Yes - ENDOCRINE/METABOLIC Hx Endocrine Disorders: No - HEMATOLOGICAL/ONCOLOGICAL Hx Blood Disorders: No Hx Blood Transfusions: No - INTEGUMENTARY Hx Dermatological Problems: No - MUSCULOSKELETAL/RHEUMATOLOGICAL Hx Arthritis: Yes (LBP) Hx Fractures: Yes - GASTROINTESTINAL Hx Gastritis: Yes - GENITOURINARY/GYNECOLOGICAL Hx Genitourinary Disorders: No - PSYCHIATRIC Hx Anxiety: Yes Hx Substance Use: No - SURGICAL HISTORY Hx Cholecystectomy: Yes - ANESTHESIA Hx Anesthesia: Yes Hx Anesthesia Reactions: No Hx Malignant Hyperthermia: No Meds Allergies/Adverse Reactions: Allergies Allergy/AdvReac Type Severity Reaction Status Date / Time chocolate flavor Allergy Intermediate WHEEZING Verified 05/20/17 10:51 spices Allergy Severe WHEEZING Uncoded 05/20/17 10:51 nuts Allergy Uncoded 05/20/17 10:51 - Medications Medications: Current Medications Enoxaparin Sodium (Lovenox) 40 mg SC DAILY [facility] Sodium Chloride (Sodium Chloride 0.45%) 1,000 mls @ 50 mls/hr IV .Q20H [facility] Stop: 05/22/17 07:29 Losartan Potassium (Cozaar) 100 mg PO DAILY [facility] Losartan Potassium (Cozaar) 100 mg PO ONCE ONE Stop: 05/20/17 15:31 Metoprolol Tartrate (Lopressor) 50 mg PO BID [facility] Metoprolol Tartrate (Lopressor) 50 mg PO ONCE ONE Stop: 05/20/17 15:31 Pantoprazole Sodium (Protonix Ec Tab) 40 mg PO DAILY [facility] Physical Exam - Constitutional Appears: Non-toxic, No Acute Distress - Head Exam Head Exam: NORMAL INSPECTION - Eye Exam Eye Exam: Normal appearance - ENT Exam ENT Exam: Mucous Membranes Moist - Respiratory Exam Respiratory Exam: absent: Accessory Muscle Use, Respiratory Distress - Cardiovascular Exam Cardiovascular Exam: REGULAR RHYTHM. absent: Tachycardia - GI/Abdominal Exam GI & Abdominal Exam: Soft, Tenderness (left flank). absent: Distended, Firm, Guarding, Hernia, Rigid - Extremities Exam Extremities exam: Positive for: normal inspection. Negative for: pedal edema - Back Exam Back exam: muscle spasm (L), paraspinal tenderness (L>R), vertebral tenderness ( L). absent: CVA tenderness (L), CVA tenderness (R) - Neurological Exam Neurological exam: Alert, Oriented x3 - Psychiatric Exam Psychiatric exam: Normal Affect, Normal Mood - Skin Skin Exam: Normal Color, Warm Results - Vital Signs Recent Vital Signs: Last Vital Signs Temp 98.1 F 05/20/17 14:13 Pulse 79 05/20/17 14:13 Resp 18 05/20/17 14:13 BP 176/83 H 05/20/17 14:17 Pulse Ox 96 05/20/17 14:13 - Labs Result Diagrams: 05/20/17 12:03 05/20/17 12:03 Labs: Laboratory Results - last 24 hr 05/20/17 05/20/17 12:03 12:03 WBC 6.8 RBC 4.96 Hgb 15.3 Hct 45.1 MCV 90.9 D MCH 30.9 MCHC 34.0 RDW 13.4 Plt Count 544 H MPV 6.4 L Neut % (Auto) 50.9 Lymph % (Auto) 41.0 H [place] % (Auto) 6.1 Eos % (Auto) 0.9 Baso % (Auto) 1.1 Neut # (Auto) 3.5 Lymph # (Auto) 2.8 [place] # (Auto) 0.4 Eos # (Auto) 0.1 Baso # (Auto) 0.1 Sodium 144 Potassium 4.8 Chloride 94 L Carbon Dioxide 28 Anion Gap 27 H BUN 19 H Creatinine 1.2 Est GFR ( Amer) 54 Est GFR (Non-Af Amer) 45 Random Glucose 86 Calcium 10.9 H Total Bilirubin 0.6 AST 27 ALT 13 Alkaline Phosphatase 105 Troponin I < 0.0120 Total Protein 10.1 H Albumin 5.3 H Globulin 4.8 H Albumin/Globulin Ratio 1.1 Lipase 195 Assessment & Plan - Assessment and Plan (Free Text) Assessment: 66F with left sided flank pain; stable AAA Plan: AAA is stable in size, no intervention needed at this time no evidence of pathology consistent with pts pain on CT scan pain started with coughing and flu like symptoms - may be musculoskeletal d/w Dr Varinder Powell, PGY3
[2017-05-20] MEDS: Pantoprazole 40 mg EC Tab PO SCH (15:30)
--- NOTE | 2017-05-20 15:35 | CP.PCM.HP ---
History of Present Illness - History of Present Illness History of Present Illness: CC;Abdominal pain Pt is a 66 year old female who contacted my office complaining of severe abd pain. Pt states she had to another ER but was sent home. Yet she called me crying with discomfort. I instructed her to go to ER for further eval. Pt complaints of gas pain and epigastric as well as generalized abd pain. PMHx: Hypercholesterolemia Pre-diabetes Abdominal aortic aneurysm, Kidney, ureter disorders Renal cystic /lession 2.5 cm Hypertension Asthma Surical Hx: Gallbladder 2006 Family Hx: Mother-DM heart disease, htn Social Hx: Former smoker Neg. ETOH, former No drugs Allergies: NKDA Medications: Combivent respirant 20 mcg-100 mcg Inhale BID Zocor 20 mg 1 qhs Metoprolol 50 mg 1 tab BID Diovan 80 mg 1 tab QD Dicyclomine 20 mg 1 tab TID Present on Admission - Present on Admission Any Indicators Present on Admission: No Review of Systems - Cardiovascular Cardiovascular: absent: Chest Pain with Activity - Respiratory Respiratory: absent: Cough, Hemoptysis - Gastrointestinal Gastrointestinal: Abdominal Pain, Bloating, Constipation - Genitourinary Genitourinary: absent: Freq UTI Past Patient History - Infectious Disease Hx of Infectious Diseases: None - Past Medical History & Family History Past Medical History?: Yes - Past Social History Smoking Status: Light Smoker < 10 Cigarettes Daily - CARDIAC Hx Hypercholesterolemia: Yes Hx Hypertension: Yes - PULMONARY Hx Asthma: Yes - NEUROLOGICAL Hx Neurological Disorder: No - HEENT Hx HEENT Problems: No - RENAL Hx Chronic Kidney Disease: Yes - ENDOCRINE/METABOLIC Hx Endocrine Disorders: No - HEMATOLOGICAL/ONCOLOGICAL Hx Blood Disorders: No Hx Blood Transfusions: No - INTEGUMENTARY Hx Dermatological Problems: No - MUSCULOSKELETAL/RHEUMATOLOGICAL Hx Arthritis: Yes (LBP) Hx Fractures: Yes - GASTROINTESTINAL Hx Gastritis: Yes - GENITOURINARY/GYNECOLOGICAL Hx Genitourinary Disorders: No - PSYCHIATRIC Hx Anxiety: Yes Hx Substance Use: No - SURGICAL HISTORY Hx Cholecystectomy: Yes - ANESTHESIA Hx Anesthesia: Yes Hx Anesthesia Reactions: No Hx Malignant Hyperthermia: No Meds Allergies/Adverse Reactions: Allergies Allergy/AdvReac Type Severity Reaction Status Date / Time chocolate flavor Allergy Intermediate WHEEZING Verified 05/20/17 10:51 spices Allergy Severe WHEEZING Uncoded 05/20/17 10:51 nuts Allergy Uncoded 05/20/17 10:51 Physical Exam - Constitutional Appears: Non-toxic - Eye Exam Eye Exam: Normal appearance Pupil Exam: NORMAL ACCOMODATION - ENT Exam ENT Exam: Mucous Membranes Moist - Neck Exam Neck exam: Positive for: Normal Inspection - Respiratory Exam Respiratory Exam: Clear to Auscultation Bilateral, NORMAL BREATHING PATTERN - Cardiovascular Exam Cardiovascular Exam: REGULAR RHYTHM, RRR. absent: JVD - GI/Abdominal Exam GI & Abdominal Exam: Normal Bowel Sounds, Tenderness. absent: Distended, Rebound, Rigid Results - Vital Signs Recent Vital Signs: Last Vital Signs Temp 98.1 F 05/20/17 14:13 Pulse 79 05/20/17 14:13 Resp 18 05/20/17 14:13 BP 176/83 H 05/20/17 14:17 Pulse Ox 96 05/20/17 14:13 - Labs Result Diagrams: 05/20/17 12:03 05/20/17 12:03 Labs: Laboratory Results - last 24 hr 05/20/17 05/20/17 12:03 12:03 WBC 6.8 RBC 4.96 Hgb 15.3 Hct 45.1 MCV 90.9 D MCH 30.9 MCHC 34.0 RDW 13.4 Plt Count 544 H MPV 6.4 L Neut % (Auto) 50.9 Lymph % (Auto) 41.0 H [place] % (Auto) 6.1 Eos % (Auto) 0.9 Baso % (Auto) 1.1 Neut # (Auto) 3.5 Lymph # (Auto) 2.8 [place] # (Auto) 0.4 Eos # (Auto) 0.1 Baso # (Auto) 0.1 Sodium 144 Potassium 4.8 Chloride 94 L Carbon Dioxide 28 Anion Gap 27 H BUN 19 H Creatinine 1.2 Est GFR ( Amer) 54 Est GFR (Non-Af Amer) 45 Random Glucose 86 Calcium 10.9 H Total Bilirubin 0.6 AST 27 ALT 13 Alkaline Phosphatase 105 Troponin I < 0.0120 Total Protein 10.1 H Albumin 5.3 H Globulin 4.8 H Albumin/Globulin Ratio 1.1 Lipase 195 Assessment & Plan - Assessment and Plan (Free Text) Assessment: 66 year old with co abd pain has been going to ER and sent home called crying with pain today admit gi amadeo ct abdomen pain management a little dry fluids renal cyst; follow up AAA follows with dvt and gi prophylaxis bp meds ordered
[2017-05-20] MEDS: Sodium Chloride 0.45% 1,000 ML IV SCH (17:55)
[2017-05-20] MEDS: Morphine 4 MG/ML VIAL IV PRN (17:56)
[2017-05-20] MEDS ORDERED: Simethicone 80 mg Chewtab PO SCH (18:00)
[2017-05-20] MEDS ORDERED: Simethicone 40 mg/0.6 ml Liquid (30 ml) PO SCH (22:00)
[2017-05-20] MEDS: Simethicone 80 mg Chewtab PO SCH (22:49)
[2017-05-21 00:27] VITALS: PULSE 69; RESP 20; O2SAT 96
[2017-05-21] MEDS: Morphine 4 MG/ML VIAL IV PRN ×2 (00:55→10:30)
[2017-05-21 07:51] LABS: BASO # 0.1 K/uL (0.0-0.2); BASO % 1.2 % (0.0-2.0); EOS # 0.2 K/uL (0.0-0.7); EOS % 3.5 % (0.0-4.0); HEMOGLOBIN 13.5 g/dL (11.0-16.0); LYMPH # 3.1 K/uL (1.0-4.3); LYMPH % 48.3 % (20.0-40.0); MEAN CELL VOLUME 90.5 fL (81.0-99.0); MEAN CORPUSCULAR HEMOGLOBIN 31.1 pg (27.0-31.0); MEAN CORPUSCULAR HGB CONC 34.4 g/dL (33.0-37.0); MEAN PLATELET VOLUME 6.5 fL (7.2-11.7); MONO # 0.6 K/uL (0.0-0.8); MONO % 9.7 % (0.0-10.0); NEUT # 2.4 K/uL (1.8-7.0); NEUT % 37.3 % (50.0-75.0); RBC 4.34 Mil/uL (3.80-5.20); RED CELL DISTRIBUTION WIDTH 13.1 % (11.5-14.5); WHITE BLOOD COUNT 6.4 K/uL (4.8-10.8)
[2017-05-21 08:17] LABS: ALB/GLOB RATIO 1.2 (1.0-2.1); ALBUMIN 4.4 g/dL (3.5-5.0); ALT/SGPT 21 U/L (9-52); AST/SGOT 27 U/L (14-36); BLOOD UREA NITROGEN 14 mg/dL (7-17); CALCIUM 10.1 mg/dl (8.6-10.4); GFR AFRICAN-AMERICAN > 60; GFR NON-AFRICAN AMERICAN 55
--- NOTE | 2017-05-21 08:40 | CP.PCM.CON ---
History of Present Illness - History of Present Illness History of Present Illness: This is a 66 year old woman with abdominal pain. Patient states that she had EGD and colonoscopy approximately 10 years ago which showed only a yeast infection in the esophagus. She was also diagnosed with "acid reflux" in the past. Patient developed a cough in the past two weeks. One week prior to admission, she noted left flank pain described as sharp and burning which seemed to improve after defecating and seemed not to change after eating. The pain moved to the LLQ over the past two days. She also reports having occasional nausea and vomiting. She has occasional heartburn but no difficulty swallowing. She has been constipated recently, daily bowel movements which may be firm, for which she takes dried fruit. She denies having bleeding per rectum recently. She was recently evaluated in the ER at [facility] for the pain. she was treated and released after a CT scan showed no significant pathology. She presented t the ER at yesterday. CT angiography showed an infrarenal aortic aneurysm 4.1 cm without leakage and a complex left kidney cyst. Review of Systems - Review of Systems All systems: reviewed and no additional remarkable complaints except - Constitutional Constitutional: absent: Chills, Fever - Cardiovascular Cardiovascular: absent: Chest Pain with Activity - Gastrointestinal Gastrointestinal: Constipation, Heartburn, Nausea, Vomiting. absent: Diarrhea, Dysphagia - Genitourinary Genitourinary: absent: Dysuria Past Patient History - Infectious Disease Hx of Infectious Diseases: None - Past Medical History & Family History Past Medical History?: Yes - Past Social History Smoking Status: Light Smoker < 10 Cigarettes Daily - CARDIAC Hx Hypercholesterolemia: Yes Hx Hypertension: Yes - PULMONARY Hx Asthma: Yes - NEUROLOGICAL Hx Neurological Disorder: No - HEENT Hx HEENT Problems: No - RENAL Hx Chronic Kidney Disease: Yes - ENDOCRINE/METABOLIC Hx Endocrine Disorders: No - HEMATOLOGICAL/ONCOLOGICAL Hx Blood Disorders: No Hx Blood Transfusions: No - INTEGUMENTARY Hx Dermatological Problems: No - MUSCULOSKELETAL/RHEUMATOLOGICAL Hx Arthritis: Yes (LBP) Hx Fractures: Yes - GASTROINTESTINAL Hx Gastritis: Yes - GENITOURINARY/GYNECOLOGICAL Hx Genitourinary Disorders: No - PSYCHIATRIC Hx Anxiety: Yes Hx Substance Use: No - SURGICAL HISTORY Hx Cholecystectomy: Yes - ANESTHESIA Hx Anesthesia: Yes Hx Anesthesia Reactions: No Hx Malignant Hyperthermia: No Meds Allergies/Adverse Reactions: Allergies Allergy/AdvReac Type Severity Reaction Status Date / Time chocolate flavor Allergy Intermediate WHEEZING Verified 05/20/17 10:51 spices Allergy Severe WHEEZING Uncoded 05/20/17 10:51 nuts Allergy Uncoded 05/20/17 10:51 - Medications Medications: Current Medications Enoxaparin Sodium (Lovenox) 40 mg SC DAILY [facility] Sodium Chloride (Sodium Chloride 0.45%) 1,000 mls @ 50 mls/hr IV .Q20H [facility] Stop: 05/22/17 07:29 Last Admin: 05/20/17 17:55 Dose: 50 mls/hr Losartan Potassium (Cozaar) 100 mg PO DAILY [facility] Metoprolol Tartrate (Lopressor) 50 mg PO BID [facility] Morphine Sulfate (Morphine) 4 mg IV Q8 PRN PRN Reason: Pain, moderate (4-7) Last Admin: 05/21/17 00:55 Dose: 4 mg Nicotine (Nicoderm Cq) 1 patch TD DAILY [facility] Pantoprazole Sodium (Protonix Ec Tab) 40 mg PO DAILY [facility] Last Admin: 05/20/17 15:30 Dose: Not Given Simethicone (Mylicon Chew Tab) 80 mg PO QID [facility] Last Admin: 05/20/17 22:49 Dose: 80 mg Physical Exam - Constitutional Appears: No Acute Distress - Head Exam Head Exam: ATRAUMATIC, NORMOCEPHALIC - Eye Exam Eye Exam: EOMI, PERRL - Neck Exam Neck exam: Negative for: Lymphadenopathy, Thyromegaly - Respiratory Exam Respiratory Exam: NORMAL BREATHING PATTERN. absent: Rales, Rhonchi, Wheezes - Cardiovascular Exam Cardiovascular Exam: REGULAR RHYTHM, +S1, +S2. absent: Gallop, Rubs, Systolic Murmur - GI/Abdominal Exam GI & Abdominal Exam: Normal Bowel Sounds, Soft. absent: Mass, Organomegaly, Tenderness - Rectal Exam Rectal Exam: Deferred - Extremities Exam Extremities exam: Negative for: calf tenderness, pedal edema Results - Vital Signs Recent Vital Signs: Last Vital Signs Temp 98.4 F 05/21/17 00:25 Pulse 69 05/21/17 00:25 Resp 20 05/21/17 00:25 BP 140/92 H 05/20/17 23:36 Pulse Ox 96 05/21/17 00:25 - Labs Result Diagrams: 05/21/17 07:35 05/21/17 07:35 Labs: Laboratory Results - last 24 hr 05/20/17 05/20/17 05/21/17 12:03 12:03 07:35 WBC 6.8 6.4 RBC 4.96 4.34 Hgb 15.3 13.5 Hct 45.1 39.2 MCV 90.9 D 90.5 MCH 30.9 31.1 H MCHC 34.0 34.4 RDW 13.4 13.1 Plt Count 544 H 451 H MPV 6.4 L 6.5 L Neut % (Auto) 50.9 37.3 L Lymph % (Auto) 41.0 H 48.3 H [place] % (Auto) 6.1 9.7 Eos % (Auto) 0.9 3.5 Baso % (Auto) 1.1 1.2 Neut # (Auto) 3.5 2.4 Lymph # (Auto) 2.8 3.1 [place] # (Auto) 0.4 0.6 Eos # (Auto) 0.1 0.2 Baso # (Auto) 0.1 0.1 Sodium 144 Potassium 4.8 Chloride 94 L Carbon Dioxide 28 Anion Gap 27 H BUN 19 H Creatinine 1.2 Est GFR ( Amer) 54 Est GFR (Non-Af Amer) 45 Random Glucose 86 Calcium 10.9 H Total Bilirubin 0.6 AST 27 ALT 13 Alkaline Phosphatase 105 Troponin I < 0.0120 Total Protein 10.1 H Albumin 5.3 H Globulin 4.8 H Albumin/Globulin Ratio 1.1 Lipase 195 05/21/17 07:35 WBC RBC Hgb Hct MCV MCH MCHC RDW Plt Count MPV Neut % (Auto) Lymph % (Auto) [place] % (Auto) Eos % (Auto) Baso % (Auto) Neut # (Auto) Lymph # (Auto) [place] # (Auto) Eos # (Auto) Baso # (Auto) Sodium 139 Potassium 4.4 Chloride 96 L Carbon Dioxide 29 Anion Gap 18 BUN 14 Creatinine 1.0 Est GFR ( Amer) > 60 Est GFR (Non-Af Amer) 55 Random Glucose 81 Calcium 10.1 Total Bilirubin 0.7 AST 27 ALT 21 Alkaline Phosphatase 85 Troponin I Total Protein 8.1 Albumin 4.4 Globulin 3.6 Albumin/Globulin Ratio 1.2 Lipase Assessment & Plan (1) Abdominal pain Assessment and Plan: Patient is a poor historian, but has a one-week history of left flank and LLQ pain after an upper respiratory illness with prominent cough. CT scan and CT angiogram did not show any acute processes. There is no evidence of diverticulitis or pelvic pathology. This may represent muscle strain related to coughing. Recommend trial of NSAIDs. Review old endoscopy and colonoscopy reports. Follow up in office. Status: Acute
[2017-05-21 08:47] VITALS: BP 172/89; TEMP 98
[2017-05-21] MEDS: Simethicone 80 mg Chewtab PO SCH ×2 (09:02→14:13)
[2017-05-21] MEDS: Pantoprazole 40 mg EC Tab PO SCH (09:02)
[2017-05-21] MEDS ORDERED: Enoxaparin 40 mg Syringe SC SCH (10:00)
[2017-05-21] MEDS: Sodium Chloride 0.45% 1,000 ML IV SCH ×2 (11:15→14:14)
--- NOTE | 2017-05-21 14:56 | CP.PCM.PN ---
Subjective - Date & Time of Evaluation Date of Evaluation: 05/21/17 Time of Evaluation: 14:48 - Subjective Subjective: PATIENT IS ADMITTED FOR INTRACTABLE ABDOMINAL PAIN AAO X3 DENIES ANY CHEST PAIN, NAUSEA/VOMITING, OR SOB DENIES ANY ABDOMINAL PAIN AND NO SIGN OF DISTRESS NOTED Objective - Vital Signs/Intake and Output Vital Signs (last 24 hours): Temp Pulse Resp BP Pulse Ox 98.0 F 69 20 172/89 H 96 05/21/17 08:00 05/21/17 08:00 05/21/17 08:00 05/21/17 08:00 05/21/17 08:00 - Medications Medications: Current Medications Acetaminophen (Tylenol 325mg Tab) 650 mg PO BID PRN PRN Reason: Pain, Mild (1-3) Enoxaparin Sodium (Lovenox) 40 mg SC DAILY [facility] Last Admin: 05/21/17 09:03 Dose: 40 mg Sodium Chloride (Sodium Chloride 0.45%) 1,000 mls @ 50 mls/hr IV .Q20H [facility] Stop: 05/22/17 07:29 Last Admin: 05/21/17 14:14 Dose: 50 mls/hr Losartan Potassium (Cozaar) 100 mg PO DAILY [facility] Last Admin: 05/21/17 12:32 Dose: 100 mg Metoprolol Tartrate (Lopressor) 50 mg PO BID [facility] Last Admin: 05/21/17 09:02 Dose: 50 mg Nicotine (Nicoderm Cq) 1 patch TD DAILY [facility] Last Admin: 05/21/17 09:03 Dose: 1 patch Pantoprazole Sodium (Protonix Ec Tab) 40 mg PO DAILY [facility] Last Admin: 05/21/17 09:02 Dose: 40 mg Simethicone (Mylicon Chew Tab) 80 mg PO QID [facility] Last Admin: 05/21/17 14:13 Dose: 80 mg - Labs Labs: 05/21/17 07:35 05/21/17 07:35 Assessment and Plan - Assessment and Plan (Free Text) Assessment: PATIENT SEEN AND EXAMINED AT THE BEDSIDE POSITIVE BOWEL SOUND ALL QUADRANT LUNG SOUND CLEAR BELEN CT SCAN DONE/ AAA NOTED AND IS STABLE IN SIZE 4.[address] PALOMARES NO INTERVENTION NEEDED NO EVIDENCE OF DIVERTICULOSIS OR PELVIC PATHOLOGY NOTED ON THE CT PER DR REA IS MUSCULOSKELETAL PAIN PATIENT WILL F/U IN OFFICE DISCUSS WITH DR HUSTON WHO AGREE WITH THE PLAN FOLLOW UP WITH DR HUSTON AT HER OFFICE ON WEDNESDAY --CALL FOR APPOINTMENT FOLLOW UP WITH DR REA AT HIS OFFICE 1-2 WEEK ---CALL FOR APPOINTMENT FOLLOW WITH DR PALOMARES WITHIN 4 WEEKS AT HIS OFFICE --CALL FOR APOINTMENT CONTINUE ALL YOUR HOME MEDICATION NEW MEDICATION TYLENOL 650 MG BY MOUTH NEEDED FOR MUSCLE PAIN NICOTINE PATCH 14MG/24H DAILY FOR 30 DAY ADVICE PATIENT DO NOT SMOKE WHILE TAKING THE PATCH WHICH CAN CAUSE CARDIAC ARRTHYMIA ACTIVITY TOLERATED CALL DR HUSTON OR GO TO THE EMERGENCY ROOM IF SYMPTOMS RETURN OR WORSENING DISCUSS WITH PATIENT WHO AGREE AND VERBALIZED UNDERSTANDING
--- NOTE | 2017-05-21 16:27 | CP.PCM.DIS ---
Provider - Provider Date of Admission: 05/20/17 11:46 Pt was seen by gi and did not thing she no acute abdominal process. Attending physician: Crys Huston MD [facility] Course - Lab Results Lab Results: Most Recent Lab Values WBC 6.4 K/uL (4.8-10.8) 05/21/17 07:35 RBC 4.34 Mil/uL (3.80-5.20) 05/21/17 07:35 Hgb 13.5 g/dL (11.0-16.0) 05/21/17 07:35 Hct 39.2 % (34.0-47.0) 05/21/17 07:35 MCV 90.5 fL (81.0-99.0) 05/21/17 07:35 MCH 31.1 pg (27.0-31.0) H 05/21/17 07:35 MCHC 34.4 g/dL (33.0-37.0) 05/21/17 07:35 RDW 13.1 % (11.5-14.5) 05/21/17 07:35 Plt Count 451 K/uL (130-400) H 05/21/17 07:35 MPV 6.5 fL (7.2-11.7) L 05/21/17 07:35 Neut % (Auto) 37.3 % (50.0-75.0) L 05/21/17 07:35 Lymph % (Auto) 48.3 % (20.0-40.0) H 05/21/17 07:35 [place] % (Auto) 9.7 % (0.0-10.0) 05/21/17 07:35 Eos % (Auto) 3.5 % (0.0-4.0) 05/21/17 07:35 Baso % (Auto) 1.2 % (0.0-2.0) 05/21/17 07:35 Neut # (Auto) 2.4 K/uL (1.8-7.0) 05/21/17 07:35 Lymph # (Auto) 3.1 K/uL (1.0-4.3) 05/21/17 07:35 [place] # (Auto) 0.6 K/uL (0.0-0.8) 05/21/17 07:35 Eos # (Auto) 0.2 K/uL (0.0-0.7) 05/21/17 07:35 Baso # (Auto) 0.1 K/uL (0.0-0.2) 05/21/17 07:35 Sodium 139 mmol/L (132-148) 05/21/17 07:35 Potassium 4.4 mmol/L (3.6-5.2) 05/21/17 07:35 Chloride 96 mmol/L (98-107) L 05/21/17 07:35 Carbon Dioxide 29 mmol/L (22-30) 05/21/17 07:35 Anion Gap 18 (10-20) 05/21/17 07:35 BUN 14 mg/dL (7-17) 05/21/17 07:35 Creatinine 1.0 mg/dL (0.7-1.2) 05/21/17 07:35 Est GFR ( Amer) > 60 05/21/17 07:35 Est GFR (Non-Af Amer) 55 05/21/17 07:35 Random Glucose 81 mg/dL (65-105) 05/21/17 07:35 Calcium 10.1 mg/dl (8.6-10.4) 05/21/17 07:35 Total Bilirubin 0.7 mg/dL (0.2-1.3) 05/21/17 07:35 AST 27 U/L (14-36) 05/21/17 07:35 ALT 21 U/L (9-52) 05/21/17 07:35 Alkaline Phosphatase 85 U/L (38-126) 05/21/17 07:35 Troponin I < 0.0120 ng/mL (0.00-0.120) 05/20/17 12:03 Total Protein 8.1 g/dL (6.3-8.3) 05/21/17 07:35 Albumin 4.4 g/dL (3.5-5.0) 05/21/17 07:35 Globulin 3.6 gm/dL (2.2-3.9) 05/21/17 07:35 Albumin/Globulin Ratio 1.2 (1.0-2.1) 05/21/17 07:35 Lipase 195 U/L (23-300) 05/20/17 12:03 - Hospital Course Hospital Course: PT was treated for pain hydrated evaluated by Dr. gonzáles and Dr. Palomares Discharge Exam - Head Exam Head Exam: ATRAUMATIC, NORMOCEPHALIC Discharge Plan - Discharge Medications Prescriptions: Nicotine 14 mg/24 hr [Nicoderm CQ] 1 patch TD DAILY 30 Days patch Acetaminophen [Tylenol 325mg tab] 650 mg PO BID PRN 15 Days tab PRN Reason: Pain, Mild (1-3) - Follow Up Plan Condition: FAIR Disposition: HOME/ ROUTINE Instructions: Smoking: Not Just Harmful to Your Lungs and Heart, Acute Abdomen (Belly Pain), Quitting Smoking Additional Instructions: FOLLOW UP WITH DR HUSTON AT HER OFFICE ON WEDNESDAY --CALL FOR APPOINTMENT FOLLOW UP WITH DR GONZÁLES AT HIS OFFICE 1-2 WEEK ---CALL FOR APPOINTMENT FOLLOW WITH DR PALOMARES WITHIN 4 WEEKS AT HIS OFFICE --CALL FOR APOINTMENT CONTINUE ALL YOUR HOME MEDICATION NEW MEDICATION TYLENOL 650 MG BY MOUTH NEEDED FOR MUSCLE PAIN NICOTINE PATCH 14MG/24H DAILY FOR 30 DAY ADVICE PATIENT DO NOT SMOKE WHILE TAKING THE PATCH WHICH CAN CAUSE CARDIAC ARRTHYMIA ACTIVITY TOLERATED CALL DR HUSTON OR GO TO THE EMERGENCY ROOM IF SYMPTOMS RETURN OR WORSENING Referrals: Crys Huston MD [Staff Provider] - Evin Palomares Jr., MD [Staff Provider] - Lucas Gonzáles MD [Staff Provider] -
--- NOTE | 2017-05-22 11:33 | CARD ---
APPROVED REPORT EKG Measurement Heart [id number] <Conclusion> Normal sinus rhythm Normal ECG
[2017-05-24 11:48] LABS: ALBUMIN (PEP) 4.2 g/dL (3.8-4.8); ALPHA-1-GLOBULIN (PEP) 0.4 g/dL (0.2-0.3)
== END 2017-05-21 15:41 | disposition home or self-care (01) | DRG 392 ==
LOC: C.ER 10:40 → C.9E 11:46 → C.5S 13:53
PROVIDERS: ADMIT Internal Medicine; ATTEND Internal Medicine
DX: R10.9 Unspecified abdominal pain (principal); N28.1 Cyst of kidney, acquired; I12.9 Hypertensive chronic kidney disease with stage 1 through stage 4 chronic kidney disease, or unspecified chronic kidney disease; E78.5 Hyperlipidemia, unspecified; F10.10 Alcohol abuse, uncomplicated; F17.200 Nicotine dependence, unspecified, uncomplicated; J31.0 Chronic rhinitis; I71.4 Abdominal aortic aneurysm, without rupture; J45.909 Unspecified asthma, uncomplicated; K21.9 Gastro-esophageal reflux disease without esophagitis; N18.9 Chronic kidney disease, unspecified

== ENCOUNTER 2018-07-08 15:22 | Emergency (ER) | payer MEDICARE ==
[2018-07-08 15:23] VITALS: BMI 17.0
[2018-07-08] MEDS ORDERED: Sodium Chloride 0.9% 500 ML IV ONE (15:49)
[2018-07-08] MEDS ORDERED: Morphine 4 MG/ML VIAL ONE (16:07)
--- NOTE | 2018-07-08 16:20 | C.PDOC ---
History Of Present Illness 67 y/o female pt presents to the ER c/o severe epigastric abdominal pain this morning. Associated sx includes nausea and vomiting. Pt reports she had a AAA repaired in July 2017. Pt reports she had similar pain in the past and did not take any medication at home for the pain. Further hx is limited due to pt crying, writhing in stretcher and uncooperative. Pt denies any other complaints or associated sx at this time. Time Seen by Provider: 07/08/18 15:36 Chief Complaint (Nursing): Abdominal Pain History Per: Patient History/Exam Limitations: other (in distress, will not stop moving, crying, or yelling ) Onset/Duration Of Symptoms: Hrs Current Symptoms Are (Timing): Still Present Past Medical History Reviewed: Historical Data, Nursing Documentation, Vital Signs Vital Signs: Last Vital Signs Temp 98.2 F 07/08/18 15:30 Pulse 99 H 07/08/18 15:30 Resp 24 07/08/18 15:30 BP 181/74 H 07/08/18 15:30 Pulse Ox 100 07/08/18 15:30 - Medical History PMH: Anxiety, Arthritis, Asthma, Depression, Fractures, Gastritis, Gall Bladder Disease, HTN, Hypercholesterolemia, Hyperthyroidism (QUESTIONABLE GOITER) Surgical History: Cholecystectomy, Endoscopy - [facility] Procedures MEASURE OF CARDIAC SAMPL & PRESSURE, L HEART, PERC APPROACH (01/06/16) PLAIN RADIOGRAPHY OF ABDOMINAL AORTA USING OTHER CONTRAST (01/06/16) PLAIN RADIOGRAPHY OF LEFT HEART USING OTHER CONTRAST (01/06/16) PLAIN RADIOGRAPHY OF MULT COR ART USING OTH CONTRAST (01/06/16) RESTRICTION OF ABD AORTA WITH INTRALUM DEV, PERC APPROACH (07/25/17) Family History: States: Unknown Family Hx - Social History Hx Tobacco Use: Yes Hx Alcohol Use: No Hx Substance Use: No - Immunization History Hx Tetanus Toxoid Vaccination: No Hx Influenza Vaccination: No Hx Pneumococcal Vaccination: Yes Review Of Systems Constitutional: Negative for: Fever, Chills Cardiovascular: Negative for: Chest Pain Respiratory: Negative for: Shortness of Breath Gastrointestinal: Positive for: Nausea, Vomiting, Abdominal Pain (epigastric ) Genitourinary: Negative for: Dysuria, Frequency Musculoskeletal: Negative for: Back Pain Skin: Negative for: Rash Neurological: Negative for: Weakness, Numbness Physical Exam - Physical Exam Appears: Non-toxic, In Acute Distress (painful ), Other (writhing in strecther, not lying still, crying and yelling ) Skin: Warm, Dry Head: Normacephalic Cardiovascular: Rhythm Regular Respiratory: Normal Breath Sounds Gastrointestinal/Abdominal: Bowel Sounds (normal ), Soft, Tenderness (epigastric ), No Distention, No Guarding, No Rebound Back: No CVA Tenderness Neurological/Psych: Oriented x3, Normal Speech ED Course And Treatment - Laboratory Results Result Diagrams: 07/08/18 16:29 07/08/18 16:29 O2 Sat by Pulse Oximetry: 100 (RA) Pulse Ox Interpretation: Normal - CT Scan/US CT abd/pel Other Rad Studies (CT/US): Read By Radiologist, Radiology Report Reviewed CT/US Interpretation: EXAM: CT Abdomen and Pelvis with IV contrast. CLINICAL HISTORY: Abd pain. TECHNIQUE: Axial computed tomography images of the abdomen and pelvis with intravenous contrast. 0.00 mGy-cm. CONTRAST: With; 100MLS VISI 320. COMPARISON: None provided. FINDINGS: LUNG BASES: The lung bases appear clear. No pleural effusions are seen. LIVER: Unremarkable. GALLBLADDER AND BILE DUCTS: Status post cholecystectomy. No biliary ductal dilatation is evident. PANCREAS: Unremarkable. SPLEEN: Unremarkable. ADRENAL GLANDS: Unremarkable. KIDNEYS, URETERS, AND BLADDER: The kidneys appear within normal limits. A 2.8 cm cyst arises from the upper left renal pole.There is no hydronephrosis or hydroureter. No urinary calculi are seen. The urinary bladder appeared normal in size and configuration. STOMACH AND BOWEL: There is mucosal wall thickening in the stomach, small and right colon compatible with gastroenteritis and colitis. Infectious or inflammatory etiologies are thought most likely. No evidence of bowel obstruction. APPENDIX: No evidence of acute appendicitis on CT examination. PERITONEUM: No free fluid. No free air. LYMPH NODES: No lymphadenopathy is evident. REPRODUCTIVE: Unremarkable as visualized. VASCULATURE: No evidence of abdominal aortic aneurysm. A vascular endograft is seen in the upper-mid abdominal aorta and in both common iliac arteries. BONES: No aggressive appearing osseous lesion. No acute osseous pathology evident. There is moderate disc interspace narrowing at L5-S1 compatible with moderate degenerative disc disease. Additionally, there is grade 1 anterior spondylolisthesis of L5 on S1. IMPRESSION: Gastroenteritis and right colitis. Consultation with GI service is recommended. Additional findings as above. Medical Decision Making Medical Decision Making: plans: -- chem labs -- blood work -- IV fluids -- morphine -- Zofran Results reviewed and discussed with patient, as well as patient's PMD Dr. Horowitz. Patient has had similar abdominal pain in the past, no need for admission at this time. Dr. Horowitz will see the patient in her office tomorrow between 8am-11am. This was communicated with the patient. Patient given 400mg cipro and 500mg flagyl ivpb here in the ED, and sent home with abx Rx. Disposition - Disposition Disposition: HOME/ ROUTINE Disposition Time: 23:25 Condition: STABLE Additional Instructions: RAHAT BRENNER, thank you for letting us take care of you today. Your provider was Marie Felton MD and you were treated for VOMITING, DIARRHEA. The emergency medical care you received today was directed at your acute symptoms. If you were prescribed any medication, please fill it and take as directed. It may take several days for your symptoms to resolve. Return to the Emergency Department if your symptoms worsen, do not improve, or if you have any other problems. Please contact your doctor or call one of the physicians/clinics you have been referred to that are listed on the Patient Visit Information form that is included in your discharge packet. Bring any paperwork you were given at discharge with you along with any medications you are taking to your follow up visit. Our treatment cannot replace ongoing medical care by a primary care provider outside of the emergency department. Thank you for allowing the [facility] team to be part of your care today. If you had an X-Ray or CT scan: A Radiologist will review the ED reading if any change in treatment is needed we will contact you. If you had a blood, urine, or wound culture: It will take several days for the results, if any change in treatment is needed we will contact you. If you had an STI test: It will take 48 hours for the results. Please call after 1 week if you have not heard back. Please follow up with Dr. Horowitz TOMORROW between 8am-11am. Prescriptions: Ciprofloxacin HCl [Cipro] 500 mg PO BID #14 tablet Metronidazole [Flagyl] 500 mg PO BID #14 tablet Instructions: Gastritis (DC), Colitis (DC) Forms: [facility] (Telugu) - Clinical Impression Clinical Impression: Colitis, Gastritis - Scribe Statement The provider has reviewed the documentation as recorded by the Scribe Caraballo Do Provider Attestation: All medical record entries made by the Scribe were at my direction and personally dictated by me. I have reviewed the chart and agree that the record accurately reflects my personal performance of the history, physical exam, medical decision making, and the department course for this patient. I have also personally directed, reviewed, and agree with the discharge instructions and disposition.
[2018-07-08 16:35] LABS: BASO # 0.1 K/uL (0.0-0.2); BASO % 0.8 % (0.0-2.0); LYMPH % 6.9 % (20.0-40.0); MEAN CELL VOLUME 92.1 fL (81.0-99.0); MEAN CORPUSCULAR HEMOGLOBIN 29.8 pg (27.0-31.0); MEAN CORPUSCULAR HGB CONC 32.3 g/dL (33.0-37.0); MEAN PLATELET VOLUME 6.5 fL (7.2-11.7); MONO # 0.5 K/uL (0.0-0.8); MONO % 3.3 % (0.0-10.0); NEUT # 12.4 K/uL (1.8-7.0); PLATELET COUNT 225 K/uL (130-400); RBC 4.98 Mil/uL (3.80-5.20); WHITE BLOOD COUNT 13.9 K/uL (4.8-10.8)
[2018-07-08 16:45] LABS: ALB/GLOB RATIO 1.4 (1.0-2.1); ALBUMIN 5.2 g/dL (3.5-5.0); ALT/SGPT 22 U/L (9-52); AST/SGOT 37 U/L (14-36); BLOOD UREA NITROGEN 14 mg/dL (7-17); CALCIUM 10.7 mg/dl (8.6-10.4); GFR NON-AFRICAN AMERICAN > 60; LIPASE 73 U/L (23-300)
[2018-07-08 16:46] LABS: HEMOGLOBIN 14.8 g/dL (11.0-16.0)
[2018-07-08 18:05] LABS: SQUAMOUS EPITHIAL < 1 /hpf (0-5); URINE BACTERIA RARE (<OCC); URINE BILIRUBIN NEGATIVE (NEGATIVE); URINE BLOOD 1+ (NEGATIVE); URINE CLARITY Clear (Clear); URINE COLOR Straw (YELLOW); URINE GLUCOSE (UA) NORMAL (Normal); URINE LEUKOCYTE ESTERASE NEG Leu/uL (Negative); URINE PROTEIN 2+ mg/dL (NEGATIVE); URINE UROBILINOGEN NORMAL mg/dL (0.2-1.0)
[2018-07-08] MEDS ORDERED: Iodixanol 320 MG/ML 100 ML BOTTLE IV ONE (18:14)
[2018-07-08 19:41] LABS: LYMPHOCYTE 12 % (20-40); METAMYELOCYTE 1 % (0-0); MONOCYTE 1 % (0-10); NEUTROPHIL 86 % (50-75); PLATELET ESTIMATE NORMAL (NORMAL); TOTAL CELLS COUNTED 100
[2018-07-08 21:02] VITALS: RESP 18
[2018-07-08] MEDS ORDERED: metroNIDAZOLE IV 500 mg/100 ml 500 MG/100 ML BAG IVPB STA (21:04)
[2018-07-08] MEDS ORDERED: Ciprofloxacin 400mg/200ml D5W 400 MG/200 ML BAG IVPB STA (21:04)
[2018-07-08] MEDS ORDERED: Ciprofloxacin 400mg/200ml D5W 400 MG/200 ML BAG IVPB ONE (21:24)
[2018-07-08] MEDS ORDERED: metroNIDAZOLE IV 500 mg/100 ml 500 MG/100 ML BAG ONE (21:24)
[2018-07-08 22:43] VITALS: BP 153/81; PULSE 69; TEMP 98.9; O2SAT 100
--- NOTE | 2018-07-09 08:32 | CT ---
Date of service: 07/08/2018 PROCEDURE: CT Abdomen and Pelvis with contrast HISTORY: abdominal pain COMPARISON: 07/25/2017 TECHNIQUE: Contrast dose: 100 mL Visipaque 320 Radiation dose: Total exam DLP = 531.01 mGy-cm. This CT exam was performed using one or more of the following dose reduction techniques: Automated exposure control, adjustment of the mA and/or kV according to patient size, and/or use of iterative reconstruction technique. FINDINGS: LOWER THORAX: Unremarkable. LIVER: Unremarkable. No gross lesion or ductal dilatation. GALLBLADDER AND BILE DUCTS: Cholecystectomy PANCREAS: Unremarkable. No gross lesion or ductal dilatation. SPLEEN: Unremarkable. ADRENALS: Unremarkable. No mass. KIDNEYS AND URETERS: Multiple left renal cortical cysts. Largest upper pole, 3.2 cm. No change. Two left lower pole cortical cyst, 1 of which is mildly hyperdense. This is also unchanged from prior examination and likely represents a proteinaceous or hemorrhagic cyst. This is unchanged dating back to 2016. No calculus or hydronephrosis. VASCULATURE: There is an aortic stent crossing the level of the renal arteries. There is a distal aorto bi-iliac stent graft. There is atherosclerotic calcification of the abdominal aorta. BOWEL: Mild gastric antral mural thickening common nonspecific. No bowel obstruction. No other abnormal bowel loops are identified. APPENDIX: Not identified. No secondary findings to suggest acute appendicitis. PERITONEUM: Unremarkable. No free fluid. No free air. LYMPH NODES: Unremarkable. No enlarged lymph nodes. BLADDER: Unremarkable. REPRODUCTIVE: Normal uterus BONES: No fracture. Grade 1 anterolisthesis at L5-S1, likely degenerative in origin. OTHER FINDINGS: None. IMPRESSION: Mild nonspecific gastric antral mural thickening. Rule out gastritis. Additional nonacute findings as above. The preliminary findings for this examination were reported by [facility] at 8:47 p.m. on 07/08/2018. There is discordance of this report with the preliminary findings. Possible gastritis. No evidence of enteritis. No evidence of colitis.
--- NOTE | 2018-07-12 19:46 | CARD ---
APPROVED REPORT Date of service: 07/08/2018 EKG Measurement Heart [id number] <Conclusion> Sinus rhythm with premature supraventricular complexes Possible Left atrial enlargement Nonspecific ST abnormality Abnormal ECG
== END 2018-07-08 23:28 | disposition home or self-care (01) ==
LOC: C.ER 15:22
DX: K52.9 Noninfective gastroenteritis and colitis, unspecified (principal); K29.70 Gastritis, unspecified, without bleeding
CPT/HCPCS: 74177; 80053; 81001; 83690; 85025; 93005; 96361; 96365; 96367; 96372; 96375; 99285; J0744; J2270; J2405; J7040; Q9967